=== PATIENT | male | born 1960 | race Two or more races ===

== ENCOUNTER 2019-06-03 18:14 | Emergency (ER) | payer MEDICAID ==
[~2019-06-03] VITALS: Ht 175.3 cm; Wt 105.0 kg
[2019-06-03] MEDS ORDERED: AMIT25TA9 PO (18:26)
[2019-06-03] MEDS ORDERED: HYDR-3831 PO (18:26)
[2019-06-03] MEDS ORDERED: MELO-107 PO (18:26)
[2019-06-03] MEDS ORDERED: GABA-531 PO (18:26)
[2019-06-03] MEDS ORDERED: METF-446 PO (18:30)
[2019-06-03] MEDS ORDERED: LISI-618 PO (18:30)
[2019-06-03 18:38] LABS: GLUCOSE,POINT OF CARE 311 MG/DL (70-110)
[2019-06-03] MEDS ORDERED: MetFORMIN HCL 500 MG TABLET PO ONE (19:45)
[2019-06-03] MEDS ORDERED: KETOROLAC TROMETHAMINE 30 MG/ML VIAL IM ONE (19:45)
[2019-06-03] MEDS ORDERED: PredniSONE 20 MG TABLET PO ONE (19:45)
[2019-06-03 20:15] VITALS: BP 135/75
== END 2019-06-03 21:34 | disposition home or self-care (01) ==
LOC: EMS 18:18
DX: G56.03 Carpal tunnel syndrome, bilateral upper limbs (principal); E11.9 Type 2 diabetes mellitus without complications; F41.9 Anxiety disorder, unspecified; Z79.899 Other long term (current) drug therapy; Z79.84 Long term (current) use of oral hypoglycemic drugs
CPT/HCPCS: 29125; 82962; 96372; 99283; J1885; J7512

== ENCOUNTER 2019-07-30 04:18 | Emergency (ER) | payer MEDICAID ==
[~2019-07-30] VITALS: Ht 170.2 cm; Wt 105.0 kg
[~2019-07-30 04:18] MED LIST: AMIT25TA9 PO; GABA-531 PO; HYDR-3831 PO; LISI-618 PO; MELO-107 PO; METF-446 PO
[2019-07-30 04:42] LABS: GLUCOSE,POINT OF CARE 242 MG/DL (70-110)
[2019-07-30] MEDS ORDERED: PB/HYOSCY/ATR/SCOP/LIDO/MAALOX 55 ML BOTTLE PO ONE (05:15)
[2019-07-30] MEDS ORDERED: KETOROLAC TROMETHAMINE 30 MG/ML VIAL IVP ONE (05:15)
[2019-07-30] MEDS ORDERED: SIMETHICONE 80 MG CHEWABLE TABLET CHEW ONE (05:15)
[2019-07-30] MEDS ORDERED: SODIUM CHLORIDE 0.9% 1,000 ML IV ONE (05:30)
[2019-07-30] MEDS ORDERED: ACETAMINOPHEN 325 MG TABLET PO ONE (05:30)
[2019-07-30 05:42] LABS: APPEARANCE,URINE CLOUDY (CLEAR); BILIRUBIN,URINE NEGATIVE (NEGATIVE); GLUCOSE, URINE (UA) 250 mg/dL (NEGATIVE); KETONES,URINE TRACE mg/dL (NEGATIVE); LEUKOCYTE ESTERASE ,URINE LARGE (NEGATIVE); NITRATE,URINE POSITIVE (NEGATIVE); OCCULT BLOOD,URINE TRACE (NEGATIVE); PROTEIN,URINE TRACE (NEGATIVE)
[2019-07-30 05:45] LABS: BASOPHILS % (AUTO) 0.5 % (0.0-2.0); EOSINOPHILS % (AUTO) 1.4 % (1.0-6.0); HEMATOCRIT 47.4 % (41-53); HEMOGLOBIN 16.3 g/dL (13.5-17.5); LYMPHOCYTES % (AUTO) 6.2 % (22.0-44.0); MEAN CORPUSCULAR HGB CONC 34.3 G/dL (31.0-37.0); MEAN CORPUSCULAR VOLUME 87 fL (80-100); MONOCYTES # (AUTO) 0.9 K/uL (0.1-1.0); MONOCYTES % (AUTO) 5.5 % (2.0-9.0); NEUTROPHILS # (AUTO) 14.4 K/uL (1.8-7.7); PLATELET COUNT (AUTO) 186 K/uL (150-450); RED BLOOD CELL COUNT(AUTO) 5.42 MIL/uL (4.50-5.90); RED CELL DISTRIBUTION WIDTH 13.5 % (11.5-14.5)
[2019-07-30 05:46] LABS: NEUTROPHILS % (AUTO) 86.4 % (40.0-70.0)
[2019-07-30 05:47] LABS: BACTERIA,URINE Few /HPF (None Seen); WBC,URINE 51-100 /HPF (0-5)
[2019-07-30 05:48] LABS: SQUAMOUS EPITHELIAL CELL,UR Rare /LPF (None Seen)
[2019-07-30 05:55] LABS: ANION GAP 11 mmol/L (8-16); CARBON DIOXIDE 23 mmol/L (22-29); CHLORIDE 105 mmol/L (98-107); CREATININE 0.95 mg/dL (0.60-1.30); GLOMERULAR FILTR. RATE CALC > 60 mL/min (>60); GLUCOSE,RANDOM 242 mg/dL (70-110); SODIUM SERUM 139 mmol/L (136-145); UREA NITROGEN, BLOOD 13 mg/dL (7-18)
[2019-07-30 06:00] LABS: ALANINE AMINOTRANSFERASE 32 U/L (12-78); ALBUMIN 3.6 g/dL (3.4-5.0); ALKALINE PHOSPHATASE 117 U/L (46-116); ASPARTATE AMINOTRANSFERASE 17 U/L (15-37); BILIRUBIN,TOTAL 1.1 mg/dL (0.1-1.0); LIPASE 92 U/L (73-393); TOTAL PROTEIN, SERUM 7.6 g/dL (6.4-8.2)
[2019-07-30] MEDS ORDERED: CefTRIAXone 1 GM/DEXTROSE 50 ML IV ONE (06:00)
[2019-07-30 07:52] VITALS: BP 127/78
== END 2019-07-30 08:25 | disposition home or self-care (01) ==
LOC: EMS 04:19
DX: N12 Tubulo-interstitial nephritis, not specified as acute or chronic (principal); R51 Headache; R50.9 Fever, unspecified; E11.9 Type 2 diabetes mellitus without complications; E78.00 Pure hypercholesterolemia, unspecified; F41.9 Anxiety disorder, unspecified; Z79.899 Other long term (current) drug therapy; Z79.84 Long term (current) use of oral hypoglycemic drugs
CPT/HCPCS: 36415; 80053; 81001; 82962; 83690; 85025; 87077; 87086; 96365; 96375; 99284; J0696; J1885; J7030

== ENCOUNTER 2020-03-20 23:25 | Emergency (ER) | payer MEDICAID ==
[~2020-03-20] VITALS: Ht 175.3 cm; Wt 110.9 kg
[~2020-03-20 23:25] MED LIST changes: +GABA-1181 PO; -GABA-531 PO
[2020-03-20] MEDS ORDERED: FLUT12AE7 IH (23:37)
[2020-03-20] MEDS ORDERED: NAPR-1025 PO (23:37)
[2020-03-20] MEDS ORDERED: ERTU1TAB3 PO (23:37)
[2020-03-20] MEDS ORDERED: GLIM2 PO (23:37)
[2020-03-21] MEDS ORDERED: AmLODIPine BESYLATE 5 MG TABLET PO ONE (02:00)
[2020-03-21] MEDS ORDERED: LORazepam 2 MG/ML VIAL IM ONE (02:00)
[2020-03-21 02:19] LABS: GLUCOSE,POINT OF CARE 310 MG/DL (70-110)
[2020-03-21 03:19] LABS: BASOPHILS % (AUTO) 0.3 % (0.0-2.0); EOSINOPHILS % (AUTO) 3.8 % (1.0-6.0); HEMATOCRIT 45.6 % (41-53); HEMOGLOBIN 15.4 g/dL (13.5-17.5); LYMPHOCYTES % (AUTO) 22.4 % (22.0-44.0); MEAN CORPUSCULAR HEMOGLOBIN 29.9 pg (26.0-34.0); MEAN CORPUSCULAR HGB CONC 33.9 G/dL (31.0-37.0); MEAN CORPUSCULAR VOLUME 88 fL (80-100); MONOCYTES # (AUTO) 0.7 K/uL (0.1-1.0); MONOCYTES % (AUTO) 7.6 % (2.0-9.0); NEUTROPHILS # (AUTO) 5.8 K/uL (1.8-7.7); NEUTROPHILS % (AUTO) 65.9 % (40.0-70.0); PLATELET COUNT (AUTO) 189 K/uL (150-450); RED BLOOD CELL COUNT(AUTO) 5.17 MIL/uL (4.50-5.90); RED CELL DISTRIBUTION WIDTH 13.3 % (11.5-14.5)
[2020-03-21 03:22] LABS: ANION GAP 10 mmol/L (8-16); CALCIUM, TOTAL 9.2 mg/dL (8.8-10.5); CARBON DIOXIDE 23 mmol/L (22-29); CHLORIDE 101 mmol/L (98-107); CREATININE 1.01 mg/dL (0.60-1.30); GLOMERULAR FILTR. RATE CALC > 60 mL/min (>60); GLUCOSE,RANDOM 314 mg/dL (70-110); SODIUM SERUM 134 mmol/L (136-145); UREA NITROGEN, BLOOD 18 mg/dL (7-18)
[2020-03-21 03:29] LABS: ALANINE AMINOTRANSFERASE 32 U/L (12-78); ALBUMIN 3.4 g/dL (3.4-5.0); ALKALINE PHOSPHATASE 143 U/L (46-116); ASPARTATE AMINOTRANSFERASE 15 U/L (15-37); BILIRUBIN,TOTAL 0.4 mg/dL (0.1-1.0); TOTAL PROTEIN, SERUM 6.6 g/dL (6.4-8.2)
[2020-03-21 03:30] VITALS: BP 124/77
== END 2020-03-21 04:08 | disposition home or self-care (01) ==
LOC: EMS 23:25
DX: R07.89 Other chest pain (principal); E11.65 Type 2 diabetes mellitus with hyperglycemia; I10 Essential (primary) hypertension; F41.9 Anxiety disorder, unspecified; E78.00 Pure hypercholesterolemia, unspecified; F17.210 Nicotine dependence, cigarettes, uncomplicated; Z79.899 Other long term (current) drug therapy
CPT/HCPCS: 36415; 71045; 80053; 82962; 84484; 85025; 93005; 96372; 99285; J2060

== ENCOUNTER 2020-07-29 03:51 | Emergency (ER) | payer MEDICAID ==
[~2020-07-29] VITALS: Ht 175.3 cm; Wt 111.4 kg
[~2020-07-29 03:51] MED LIST changes: +ERTU1TAB3 PO; +FLUT12AE7 IH; +GLIM2 PO; -LISI-618 PO; +LISI20TA24 PO; +NAPR-1025 PO
[2020-07-29] MEDS ORDERED: HYDROCODONE/ACETAMINOPHEN 5-325 MG TABLET PO ONE (04:45)
[2020-07-29 05:00] VITALS: BP 149/89
== END 2020-07-29 05:44 | disposition home or self-care (01) ==
LOC: EMS 03:54
DX: S83.92XA Sprain of unspecified site of left knee, initial encounter (principal); F41.9 Anxiety disorder, unspecified; E11.9 Type 2 diabetes mellitus without complications; E78.00 Pure hypercholesterolemia, unspecified; I10 Essential (primary) hypertension; F17.210 Nicotine dependence, cigarettes, uncomplicated; Z79.899 Other long term (current) drug therapy; Z79.84 Long term (current) use of oral hypoglycemic drugs; V89.9XXA Person injured in unspecified vehicle accident, initial encounter; Y93.89 Activity, other specified; Y92.89 Other specified places as the place of occurrence of the external cause; Y99.8 Other external cause status
CPT/HCPCS: 99283

== ENCOUNTER → 2020-11-01 | Emergency (ER) | payer MEDICAID ==
[~2020-11-01] VITALS: Ht 175.3 cm; Wt 110.5 kg
[~2020-11-01] MED LIST changes: -AMIT25TA9 PO; +CIPROFLOXACIN 400 MG/D5% WATER 200 ML IV ONE; +CefTRIAXone 1 GM/DEXTROSE 50 ML IV ONE; +KETOROLAC TROMETHAMINE 30 MG/ML VIAL IVP ONE; -MELO-107 PO; -NAPR-1025 PO
[2020-11-01 04:26] LABS: BASOPHILS % (AUTO) 0.2 % (0.0-2.0); EOSINOPHILS % (AUTO) 2.5 % (1.0-6.0); HEMATOCRIT 45.1 % (41-53); HEMOGLOBIN 15.1 g/dL (13.5-17.5); LYMPHOCYTES # (AUTO) 1.6 K/uL (1.0-4.8); LYMPHOCYTES % (AUTO) 15.5 % (22.0-44.0); MEAN CORPUSCULAR HEMOGLOBIN 29.5 pg (26.0-34.0); MEAN CORPUSCULAR HGB CONC 33.5 G/dL (31.0-37.0); MEAN CORPUSCULAR VOLUME 88 fL (80-100); MONOCYTES % (AUTO) 9.4 % (2.0-9.0); NEUTROPHILS # (AUTO) 7.7 K/uL (1.8-7.7); NEUTROPHILS % (AUTO) 72.4 % (40.0-70.0); PLATELET COUNT (AUTO) 195 K/uL (150-450); RED BLOOD CELL COUNT(AUTO) 5.13 MIL/uL (4.50-5.90); RED CELL DISTRIBUTION WIDTH 13.5 % (11.5-14.5)
[2020-11-01 04:29] LABS: APPEARANCE,URINE CLEAR (CLEAR); BILIRUBIN,URINE NEGATIVE (NEGATIVE); GLUCOSE, URINE (UA) 250 mg/dL (NEGATIVE); KETONES,URINE NEGATIVE (NEGATIVE); LEUKOCYTE ESTERASE ,URINE SMALL (NEGATIVE); NITRATE,URINE POSITIVE (NEGATIVE); OCCULT BLOOD,URINE TRACE (NEGATIVE); PROTEIN,URINE NEGATIVE (NEGATIVE); UROBILINOGEN,URINE 0.2 mg/dL (<=1.0)
[2020-11-01 04:37] LABS: ANION GAP 9 mmol/L (8-16); CALCIUM, TOTAL 8.7 mg/dL (8.8-10.5); CARBON DIOXIDE 25 mmol/L (22-29); CHLORIDE 102 mmol/L (98-107); GLOMERULAR FILTR. RATE CALC > 60 mL/min (>60); GLUCOSE,RANDOM 275 mg/dL (70-110); POTASSIUM 4.2 mmol/L (3.5-5.1); SODIUM SERUM 136 mmol/L (136-145); UREA NITROGEN, BLOOD 21 mg/dL (7-18)
[2020-11-01 04:41] LABS: BACTERIA,URINE Many /HPF (None Seen); MUCUS,URINE Few LPF (None Seen); SQUAMOUS EPITHELIAL CELL,UR Rare /LPF (None Seen)
[2020-11-01 04:43] LABS: ALANINE AMINOTRANSFERASE 33 U/L (12-78); ALBUMIN 3.1 g/dL (3.4-5.0); ALKALINE PHOSPHATASE 113 U/L (46-116); ASPARTATE AMINOTRANSFERASE 18 U/L (15-37); BILIRUBIN,TOTAL 0.8 mg/dL (0.1-1.0); LIPASE 162 U/L (73-393)
[2020-11-01 05:00] VITALS: BP 135/79
== END | disposition home or self-care (01) ==
LOC: EMS 03:40
DX: N39.0 Urinary tract infection, site not specified (principal); F41.9 Anxiety disorder, unspecified; E11.9 Type 2 diabetes mellitus without complications; E78.00 Pure hypercholesterolemia, unspecified; I10 Essential (primary) hypertension; F17.210 Nicotine dependence, cigarettes, uncomplicated; Z79.899 Other long term (current) drug therapy
CPT/HCPCS: 36415; 80053; 81001; 82962; 83690; 85025; 87077; 87086; 87186; 96365; 96375; 99284; J0696; J1885

== ENCOUNTER 2020-12-02 21:16 | Emergency (ER) | payer MEDICAID ==
[~2020-12-02] VITALS: Ht 175.3 cm; Wt 106.8 kg
[~2020-12-02 21:16] MED LIST changes: +ACET-2895 PO; -CIPROFLOXACIN 400 MG/D5% WATER 200 ML IV ONE; -CefTRIAXone 1 GM/DEXTROSE 50 ML IV ONE; +ERTA1I IV; -KETOROLAC TROMETHAMINE 30 MG/ML VIAL IVP ONE; +LIDO35.44 TP
[2020-12-02 21:30] VITALS: BP 127/71
== END 2020-12-02 21:50 | disposition home or self-care (01) ==
LOC: EMS 21:21
DX: Z45.2 Encounter for adjustment and management of vascular access device (principal); F41.9 Anxiety disorder, unspecified; E11.9 Type 2 diabetes mellitus without complications; E78.00 Pure hypercholesterolemia, unspecified; I10 Essential (primary) hypertension; F17.210 Nicotine dependence, cigarettes, uncomplicated; Z79.899 Other long term (current) drug therapy; Z79.84 Long term (current) use of oral hypoglycemic drugs
CPT/HCPCS: 99281; Z7502

== ENCOUNTER 2020-12-06 16:54 | Emergency (ER) | payer MEDICAID, OTHER ==
[~2020-12-06] VITALS: Ht 175.3 cm; Wt 106.8 kg
[2020-12-06 19:35] VITALS: BP 138/73
== END 2020-12-06 19:40 | disposition home or self-care (01) ==
LOC: EMS 16:56
DX: T82.838A Hemorrhage due to vascular prosthetic devices, implants and grafts, initial encounter (principal); E11.9 Type 2 diabetes mellitus without complications; E78.00 Pure hypercholesterolemia, unspecified; I10 Essential (primary) hypertension; Z79.84 Long term (current) use of oral hypoglycemic drugs; Z79.899 Other long term (current) drug therapy; Y83.8 Other surgical procedures as the cause of abnormal reaction of the patient, or of later complication, without mention of misadventure at the time of the procedure; Y82.8 Other medical devices associated with adverse incidents
CPT/HCPCS: 99281; Z7502

== ENCOUNTER 2021-01-22 05:14 | Emergency (ER) | payer MEDICAID ==
[~2021-01-22] VITALS: Ht 175.3 cm; Wt 110.7 kg
[~2021-01-22 05:14] MED LIST changes: +BACTDSB PO; -ERTA1I IV; +ERTU15TA PO; -ERTU1TAB3 PO; -GLIM2 PO; -HYDR-3831 PO; -LIDO35.44 TP; -LISI20TA24 PO
[2021-01-22 06:05] LABS: COVID AG,FIA SOURCE NASOPHARYNGEAL
[2021-01-22 06:42] LABS: BASOPHILS % (AUTO) 0.8 % (0.0-2.0); EOSINOPHILS % (AUTO) 6.4 % (1.0-6.0); HEMATOCRIT 44.4 % (41-53); HEMOGLOBIN 14.8 g/dL (13.5-17.5); LYMPHOCYTES # (AUTO) 1.1 K/uL (1.0-4.8); LYMPHOCYTES % (AUTO) 22.5 % (22.0-44.0); MEAN CORPUSCULAR HEMOGLOBIN 29.2 pg (26.0-34.0); MEAN CORPUSCULAR HGB CONC 33.4 G/dL (31.0-37.0); MEAN CORPUSCULAR VOLUME 87 fL (80-100); MONOCYTES # (AUTO) 0.8 K/uL (0.1-1.0); MONOCYTES % (AUTO) 15.3 % (2.0-9.0); NEUTROPHILS # (AUTO) 2.7 K/uL (1.8-7.7); PLATELET COUNT (AUTO) 167 K/uL (150-450); RED BLOOD CELL COUNT(AUTO) 5.08 MIL/uL (4.50-5.90); RED CELL DISTRIBUTION WIDTH 14.1 % (11.5-14.5)
[2021-01-22 06:51] LABS: ANION GAP 9 mmol/L (8-16); CARBON DIOXIDE 25 mmol/L (22-29); CHLORIDE 104 mmol/L (98-107); CREATININE 0.81 mg/dL (0.60-1.30); GLOMERULAR FILTR. RATE CALC > 60 mL/min (>60); GLUCOSE,RANDOM 196 mg/dL (70-110); POTASSIUM 3.7 mmol/L (3.5-5.1); SODIUM SERUM 138 mmol/L (136-145); UREA NITROGEN, BLOOD 11 mg/dL (7-18)
[2021-01-22 06:54] LABS: ALANINE AMINOTRANSFERASE 32 U/L (12-78); ALBUMIN 3.2 g/dL (3.4-5.0); ALKALINE PHOSPHATASE 143 U/L (46-116); ASPARTATE AMINOTRANSFERASE 20 U/L (15-37); BILIRUBIN,TOTAL 0.4 mg/dL (0.1-1.0); TOTAL PROTEIN, SERUM 6.8 g/dL (6.4-8.2)
[2021-01-22 06:55] LABS: APPEARANCE,URINE CLEAR (CLEAR); BILIRUBIN,URINE NEGATIVE (NEGATIVE); GLUCOSE, URINE (UA) 100 mg/dL (NEGATIVE); KETONES,URINE TRACE mg/dL (NEGATIVE); LEUKOCYTE ESTERASE ,URINE NEGATIVE (NEGATIVE); NITRATE,URINE NEGATIVE (NEGATIVE); OCCULT BLOOD,URINE NEGATIVE (NEGATIVE); PROTEIN,URINE NEGATIVE (NEGATIVE)
[2021-01-22 07:00] VITALS: BP 137/92
[2021-01-22 07:07] LABS: BACTERIA,URINE None Seen /HPF (None Seen); RBC,URINE 0-2 /HPF (0-2)
[2021-01-22 07:12] LABS: B-TYPE NATRIURETIC PEPTIDE 16 pg/mL (0-100)
== END 2021-01-22 07:54 | disposition home or self-care (01) ==
LOC: EMS 05:15
DX: J06.9 Acute upper respiratory infection, unspecified (principal); E11.65 Type 2 diabetes mellitus with hyperglycemia; Z20.822 Contact with and (suspected) exposure to COVID-19; E78.00 Pure hypercholesterolemia, unspecified; F41.9 Anxiety disorder, unspecified; Z87.891 Personal history of nicotine dependence
CPT/HCPCS: 71045; 80053; 81001; 82962; 83880; 84484; 85025; 93005; 99285; 36415-L1; 36415-TC

== ENCOUNTER 2021-02-23 20:09 | Emergency (ER) | payer MEDICAID ==
[~2021-02-23] VITALS: Ht 175.3 cm; Wt 108.0 kg
[2021-02-23 21:43] LABS: APPEARANCE,URINE CLEAR (CLEAR); BILIRUBIN,URINE NEGATIVE (NEGATIVE); GLUCOSE, URINE (UA) >=1000 mg/dL (NEGATIVE); KETONES,URINE TRACE mg/dL (NEGATIVE); LEUKOCYTE ESTERASE ,URINE NEGATIVE (NEGATIVE); NITRATE,URINE NEGATIVE (NEGATIVE); OCCULT BLOOD,URINE MODERATE (NEGATIVE); PROTEIN,URINE NEGATIVE (NEGATIVE)
[2021-02-23 21:50] LABS: BACTERIA,URINE Rare /HPF (None Seen); WBC,URINE 0-2 /HPF (0-5)
[2021-02-23] MEDS ORDERED: KETOROLAC TROMETHAMINE 30 MG/ML VIAL IVP ONE (22:00)
[2021-02-23] MEDS ORDERED: SODIUM CHLORIDE 0.9% 1,000 ML IV ONE (22:00)
[2021-02-23] MEDS ORDERED: ONDANSETRON HCL 4 MG/2 ML VIAL IVP ONE (22:00)
[2021-02-23 23:09] LABS: BASOPHILS % (AUTO) 0.2 % (0.0-2.0); EOSINOPHILS % (AUTO) 1.3 % (1.0-6.0); HEMATOCRIT 45.4 % (41-53); HEMOGLOBIN 15.2 g/dL (13.5-17.5); LYMPHOCYTES # (AUTO) 1.3 K/uL (1.0-4.8); LYMPHOCYTES % (AUTO) 11.7 % (22.0-44.0); MEAN CORPUSCULAR HEMOGLOBIN 28.8 pg (26.0-34.0); MEAN CORPUSCULAR HGB CONC 33.4 G/dL (31.0-37.0); MEAN CORPUSCULAR VOLUME 86 fL (80-100); MONOCYTES # (AUTO) 1.1 K/uL (0.1-1.0); MONOCYTES % (AUTO) 9.9 % (2.0-9.0); NEUTROPHILS # (AUTO) 8.8 K/uL (1.8-7.7); NEUTROPHILS % (AUTO) 76.9 % (40.0-70.0); PLATELET COUNT (AUTO) 151 K/uL (150-450); RED BLOOD CELL COUNT(AUTO) 5.27 MIL/uL (4.50-5.90); RED CELL DISTRIBUTION WIDTH 14.3 % (11.5-14.5)
[2021-02-23 23:20] LABS: ANION GAP 10 mmol/L (8-16); CALCIUM, TOTAL 8.7 mg/dL (8.8-10.5); CARBON DIOXIDE 25 mmol/L (22-29); CHLORIDE 103 mmol/L (98-107); CREATININE 0.93 mg/dL (0.60-1.30); GLOMERULAR FILTR. RATE CALC > 60 mL/min (>60); GLUCOSE,RANDOM 213 mg/dL (70-110); POTASSIUM 4.5 mmol/L (3.5-5.1); SODIUM SERUM 138 mmol/L (136-145); UREA NITROGEN, BLOOD 16 mg/dL (7-18)
[2021-02-23 23:26] LABS: ALANINE AMINOTRANSFERASE 29 U/L (12-78); ALKALINE PHOSPHATASE 92 U/L (46-116); ASPARTATE AMINOTRANSFERASE 26 U/L (15-37); BILIRUBIN,TOTAL 0.8 mg/dL (0.1-1.0); LIPASE 109 U/L (73-393); TOTAL PROTEIN, SERUM 7.5 g/dL (6.4-8.2)
[2021-02-24 00:22] LABS: LACTIC ACID 1.8 mmol/L (0.4-2.0)
[2021-02-24 00:28] VITALS: BP 140/86
== END 2021-02-24 00:33 | disposition home or self-care (01) ==
LOC: EMS 20:10
DX: R10.84 Generalized abdominal pain (principal); E11.65 Type 2 diabetes mellitus with hyperglycemia; F41.9 Anxiety disorder, unspecified; E78.00 Pure hypercholesterolemia, unspecified; I10 Essential (primary) hypertension; F17.210 Nicotine dependence, cigarettes, uncomplicated; Z79.84 Long term (current) use of oral hypoglycemic drugs
CPT/HCPCS: 36415; 80053; 81001; 83605; 83690; 84484; 85025; 96361; 96374; 96375; 99284; J1885; J2405; J7030

== ENCOUNTER 2021-07-31 07:49 | Emergency (ER) | payer MEDICAID ==
[~2021-07-31] VITALS: Ht 175.3 cm; Wt 105.9 kg
[~2021-07-31 07:49] MED LIST changes: -ACET-2895 PO; -BACTDSB PO; -ERTU15TA PO; -GABA-1181 PO; +GABA-1201 PO; +GLIM2 PO; +INSU100I26 SQ; +LEVO-72 PO; +LISI20TA24 PO
[2021-07-31] MEDS ORDERED: KETOROLAC TROMETHAMINE 30 MG/ML VIAL IVP ONE (08:15)
[2021-07-31] MEDS ORDERED: ACETAMINOPHEN 500 MG TABLET PO ONE (08:15)
[2021-07-31] MEDS ORDERED: ONDANSETRON HCL 4 MG/2 ML VIAL IVP ONE (08:15)
[2021-07-31] MEDS ORDERED: FAMOTIDINE 10 MG/ML 2 ML VIAL IVP ONE (08:15)
[2021-07-31] MEDS ORDERED: SODIUM CHLORIDE 0.9% 1,000 ML IV ONE (08:15)
[2021-07-31 08:20] LABS: BASOPHILS % (AUTO) 0.5 % (0.0-2.0); EOSINOPHILS % (AUTO) 1.5 % (1.0-6.0); HEMATOCRIT 46.2 % (41-53); HEMOGLOBIN 15.9 g/dL (13.5-17.5); LYMPHOCYTES # (AUTO) 1.3 K/uL (1.0-4.8); MEAN CORPUSCULAR HEMOGLOBIN 29.8 pg (26.0-34.0); MEAN CORPUSCULAR HGB CONC 34.4 G/dL (31.0-37.0); MEAN CORPUSCULAR VOLUME 87 fL (80-100); MONOCYTES % (AUTO) 8.2 % (2.0-9.0); NEUTROPHILS # (AUTO) 10.1 K/uL (1.8-7.7); NEUTROPHILS % (AUTO) 79.8 % (40.0-70.0); PLATELET COUNT (AUTO) 177 K/uL (150-450); RED BLOOD CELL COUNT(AUTO) 5.33 MIL/uL (4.50-5.90); RED CELL DISTRIBUTION WIDTH 13.9 % (11.5-14.5)
[2021-07-31 08:27] LABS: ANION GAP 7 mmol/L (8-16); CALCIUM, TOTAL 8.9 mg/dL (8.8-10.5); CARBON DIOXIDE 26 mmol/L (22-29); CHLORIDE 101 mmol/L (98-107); CREATININE 0.92 mg/dL (0.60-1.30); GLOMERULAR FILTR. RATE CALC > 60 mL/min (>60); GLUCOSE,RANDOM 164 mg/dL (70-110); POTASSIUM 4.3 mmol/L (3.5-5.1); SODIUM SERUM 134 mmol/L (136-145); UREA NITROGEN, BLOOD 15 mg/dL (7-18)
[2021-07-31] MEDS ORDERED: IOHEXOL 350 MG/ML 150 ML VIAL ONE (08:31)
[2021-07-31] MEDS ORDERED: SODIUM CHLORIDE 0.9% 100 ML ONE (08:31)
[2021-07-31 08:33] LABS: ALANINE AMINOTRANSFERASE 31 U/L (12-78); ALBUMIN 3.7 g/dL (3.4-5.0); ALKALINE PHOSPHATASE 97 U/L (46-116); ASPARTATE AMINOTRANSFERASE 19 U/L (15-37); BILIRUBIN,TOTAL 1.2 mg/dL (0.1-1.0); LIPASE 103 U/L (73-393); TOTAL PROTEIN, SERUM 7.7 g/dL (6.4-8.2)
[2021-07-31 09:05] LABS: APPEARANCE,URINE HAZY (CLEAR); BILIRUBIN,URINE NEGATIVE (NEGATIVE); GLUCOSE, URINE (UA) NEGATIVE (NEGATIVE); KETONES,URINE NEGATIVE (NEGATIVE); LEUKOCYTE ESTERASE ,URINE LARGE (NEGATIVE); NITRATE,URINE NEGATIVE (NEGATIVE); OCCULT BLOOD,URINE TRACE (NEGATIVE); PH,URINE 7.5 (5.0-8.0); PROTEIN,URINE 30-70 mg/dL (NEGATIVE); SPECIFIC GRAVITIY, URINE 1.024 (1.003-1.030)
[2021-07-31 09:18] LABS: BACTERIA,URINE Many /HPF (None Seen); WBC,URINE >100 /HPF (0-5)
[2021-07-31] MEDS ORDERED: CefTRIAXone 1 GM/DEXTROSE 50 ML IV ONE (09:30)
[2021-07-31 09:57] VITALS: BP 132/86
[2021-07-31] MEDS ORDERED: CEPH500C3 PO (10:08)
== END 2021-07-31 10:31 | disposition home or self-care (01) ==
LOC: EMS 07:53
DX: N12 Tubulo-interstitial nephritis, not specified as acute or chronic (principal); I10 Essential (primary) hypertension; E11.9 Type 2 diabetes mellitus without complications; E78.00 Pure hypercholesterolemia, unspecified; F41.9 Anxiety disorder, unspecified; Z79.899 Other long term (current) drug therapy
CPT/HCPCS: 36415; 74177; 80053; 81001; 82962; 83690; 85025; 87086; 96365; 96375; 99285; J0696; J1885; J2405; J3490; J7030; J7050; Q9967

== ENCOUNTER 2021-11-04 01:03 | Emergency (ER) | payer MEDICAID ==
[~2021-11-04] VITALS: Ht 175.3 cm; Wt 100.0 kg
[~2021-11-04 01:03] MED LIST changes: +CEPH-558 PO
[2021-11-04 01:15] VITALS: BP 128/80
[2021-11-04 02:51] LABS: BASOPHILS % (AUTO) 0.3 % (0.0-2.0); EOSINOPHILS % (AUTO) 2.1 % (1.0-6.0); HEMATOCRIT 43.8 % (41-53); HEMOGLOBIN 14.9 g/dL (13.5-17.5); LYMPHOCYTES # (AUTO) 1.6 K/uL (1.0-4.8); LYMPHOCYTES % (AUTO) 17.5 % (22.0-44.0); MEAN CORPUSCULAR HEMOGLOBIN 29.4 pg (26.0-34.0); MEAN CORPUSCULAR HGB CONC 34.1 G/dL (31.0-37.0); MEAN CORPUSCULAR VOLUME 86 fL (80-100); MONOCYTES # (AUTO) 0.7 K/uL (0.1-1.0); MONOCYTES % (AUTO) 7.9 % (2.0-9.0); NEUTROPHILS # (AUTO) 6.5 K/uL (1.8-7.7); NEUTROPHILS % (AUTO) 72.2 % (40.0-70.0); PLATELET COUNT (AUTO) 187 K/uL (150-450); RED BLOOD CELL COUNT(AUTO) 5.08 MIL/uL (4.50-5.90); RED CELL DISTRIBUTION WIDTH 13.6 % (11.5-14.5)
[2021-11-04 02:58] LABS: ANION GAP 9 mmol/L (8-16); CALCIUM, TOTAL 8.8 mg/dL (8.8-10.5); CARBON DIOXIDE 25 mmol/L (22-29); CHLORIDE 103 mmol/L (98-107); CREATININE 1.05 mg/dL (0.60-1.30); GLOMERULAR FILTR. RATE CALC > 60 mL/min (>60); GLUCOSE,RANDOM 373 mg/dL (70-110); POTASSIUM 4.2 mmol/L (3.5-5.1); SODIUM SERUM 137 mmol/L (136-145); UREA NITROGEN, BLOOD 13 mg/dL (7-18)
[2021-11-04 03:03] LABS: INR 1.1 (0.9-1.1); PROTHROMBIN TIME 11.4 SEC (9.4-11.6)
[2021-11-04 03:04] LABS: ALANINE AMINOTRANSFERASE 27 U/L (12-78); ALBUMIN 3.1 g/dL (3.4-5.0); ALKALINE PHOSPHATASE 120 U/L (46-116); ASPARTATE AMINOTRANSFERASE 13 U/L (15-37); BILIRUBIN,TOTAL 0.3 mg/dL (0.1-1.0); LIPASE 86 U/L (73-393); TOTAL PROTEIN, SERUM 6.6 g/dL (6.4-8.2)
[2021-11-04 03:09] LABS: APPEARANCE,URINE CLEAR (CLEAR); BILIRUBIN,URINE NEGATIVE (NEGATIVE); GLUCOSE, URINE (UA) >=1000 mg/dL (NEGATIVE); LEUKOCYTE ESTERASE ,URINE MODERATE (NEGATIVE); NITRATE,URINE NEGATIVE (NEGATIVE); OCCULT BLOOD,URINE NEGATIVE (NEGATIVE); PROTEIN,URINE NEGATIVE (NEGATIVE); SPECIFIC GRAVITIY, URINE 1.026 (1.003-1.030); UROBILINOGEN,URINE <=1.0 mg/dL (<=1.0)
[2021-11-04 03:23] LABS: BACTERIA,URINE None Seen /HPF (None Seen); RBC,URINE 0-2 /HPF (0-2)
[2021-11-04] MEDS ORDERED: CEPH-558 PO (03:47)
== END 2021-11-04 04:32 | disposition left against medical advice (07) ==
LOC: EMS 01:03
DX: N39.0 Urinary tract infection, site not specified (principal); R33.9 Retention of urine, unspecified; F41.9 Anxiety disorder, unspecified; E11.9 Type 2 diabetes mellitus without complications; E78.00 Pure hypercholesterolemia, unspecified; I10 Essential (primary) hypertension; Z87.440 Personal history of urinary (tract) infections
CPT/HCPCS: 80053; 81001; 82962; 83690; 84484; 85025; 85610; 85730; 87086; 93005; 99284

== ENCOUNTER 2022-01-23 19:16 | Emergency (ER) | payer MEDICAID ==
[~2022-01-23] VITALS: Ht 175.3 cm; Wt 103.2 kg
[2022-01-23] MEDS ORDERED: KETOROLAC TROMETHAMINE 30 MG/ML VIAL IM ONE (20:15)
[2022-01-23 21:30] VITALS: BP 131/76
[2022-01-23] MEDS ORDERED: IBUP-2070 PO (22:09)
[2022-01-23] MEDS ORDERED: ACET-66 PO (22:09)
== END 2022-01-24 00:12 | disposition home or self-care (01) ==
LOC: EMS 19:16
DX: S86.912A Strain of unspecified muscle(s) and tendon(s) at lower leg level, left leg, initial encounter (principal); E11.9 Type 2 diabetes mellitus without complications; E78.00 Pure hypercholesterolemia, unspecified; F41.9 Anxiety disorder, unspecified; I10 Essential (primary) hypertension; X58.XXXA Exposure to other specified factors, initial encounter; Y93.01 Activity, walking, marching and hiking; Y92.89 Other specified places as the place of occurrence of the external cause; Y99.8 Other external cause status; Z87.440 Personal history of urinary (tract) infections
CPT/HCPCS: 99283; 82962; 73562; 96372; J1885

== ENCOUNTER 2022-01-26 20:39 | Emergency (ER) | payer MEDICAID ==
[~2022-01-26] VITALS: Ht 175.3 cm; Wt 103.2 kg
[~2022-01-26 20:39] MED LIST changes: +ACET-66 PO; +IBUP-2070 PO
[2022-01-26 20:44] VITALS: BP 154/84
== END 2022-01-26 22:59 | disposition left against medical advice (07) ==
LOC: EMS 20:39
DX: R53.1 Weakness (principal); Z53.21 Procedure and treatment not carried out due to patient leaving prior to being seen by health care provider

== ENCOUNTER 2022-05-26 06:16 | Inpatient (IN) | payer MEDICAID, OTHER ==
[~2022-05-26] VITALS: Ht 175.3 cm; Wt 101.3 kg
[~2022-05-26 06:16] MED LIST changes: +IBUP-1492 PO; -IBUP-2070 PO
[2022-05-26 07:04] LABS: BASOPHILS % (AUTO) 0.2 % (0.0-2.0); EOSINOPHILS % (AUTO) 0.2 % (1.0-6.0); HEMATOCRIT 45.2 % (41-53); HEMOGLOBIN 15.1 g/dL (13.5-17.5); LYMPHOCYTES # (AUTO) 0.9 K/uL (1.0-4.8); LYMPHOCYTES % (AUTO) 6.4 % (22.0-44.0); MEAN CORPUSCULAR HEMOGLOBIN 28.8 pg (26.0-34.0); MEAN CORPUSCULAR HGB CONC 33.3 G/dL (31.0-37.0); MEAN CORPUSCULAR VOLUME 86 fL (80-100); MONOCYTES % (AUTO) 6.9 % (2.0-9.0); NEUTROPHILS # (AUTO) 12.5 K/uL (1.8-7.7); PLATELET COUNT (AUTO) 177 K/uL (150-450); RED BLOOD CELL COUNT(AUTO) 5.24 MIL/uL (4.50-5.90); RED CELL DISTRIBUTION WIDTH 13.4 % (11.5-14.5)
[2022-05-26 07:15] LABS: ANION GAP 9 mmol/L (8-16); CALCIUM, TOTAL 8.7 mg/dL (8.8-10.5); CARBON DIOXIDE 25 mmol/L (22-29); CHLORIDE 100 mmol/L (98-107); CREATININE 0.91 mg/dL (0.60-1.30); GLUCOSE,RANDOM 189 mg/dL (70-110); POTASSIUM 3.5 mmol/L (3.5-5.1); SODIUM SERUM 134 mmol/L (136-145); UREA NITROGEN, BLOOD 11 mg/dL (7-18)
[2022-05-26 07:16] LABS: GLOMERULAR FILTR. RATE CALC > 60 mL/min (>60); NEUTROPHILS % (AUTO) 86.3 % (40.0-70.0)
[2022-05-26 07:19] LABS: ALANINE AMINOTRANSFERASE 20 U/L (12-78); ALBUMIN 3.3 g/dL (3.4-5.0); ALKALINE PHOSPHATASE 98 U/L (46-116); ASPARTATE AMINOTRANSFERASE 12 U/L (15-37); TOTAL PROTEIN, SERUM 7.3 g/dL (6.4-8.2)
[2022-05-26 07:25] LABS: INR 1.3 (0.9-1.1); PROTHROMBIN TIME 13.8 SEC (9.4-11.6)
[2022-05-26 07:28] LABS: COVID AG,FIA SOURCE NASAL SWAB
[2022-05-26 07:40] LABS: B-TYPE NATRIURETIC PEPTIDE 49 pg/mL (0-100)
[2022-05-26 08:03] LABS: INFLUENZA TYPE A NEGATIVE FOR TYPE A (NEGATIVE); INFLUENZA TYPE B NEGATIVE FOR TYPE B (NEGATIVE)
[2022-05-26] MEDS ORDERED: ACETAMINOPHEN 500 MG TABLET PO ONE (09:45)
[2022-05-26] MEDS ORDERED: KETOROLAC TROMETHAMINE 30 MG/ML VIAL IVP ONE (09:45)
[2022-05-26] MEDS: SODIUM CHLORIDE 0.9% 1,000 ML IV ONE ×2 (09:52→10:06)
[2022-05-26 10:51] LABS: GLUCOSE,POINT OF CARE 163 MG/DL (70-110)
[2022-05-26 11:27] LABS: APPEARANCE,URINE CLEAR (CLEAR); BILIRUBIN,URINE NEGATIVE (NEGATIVE); GLUCOSE, URINE (UA) NEGATIVE (NEGATIVE); KETONES,URINE TRACE mg/dL (NEGATIVE); LEUKOCYTE ESTERASE ,URINE SMALL (NEGATIVE); NITRATE,URINE NEGATIVE (NEGATIVE); OCCULT BLOOD,URINE MODERATE (NEGATIVE); PH,URINE 6.5 (5.0-8.0); PROTEIN,URINE 30-70 mg/dL (NEGATIVE); SPECIFIC GRAVITIY, URINE 1.024 (1.003-1.030)
[2022-05-26 11:39] LABS: BACTERIA,URINE Moderate /HPF (None Seen)
[2022-05-26] MEDS ORDERED: ALBUTEROL SULFATE 2.5 MG/0.5 ML NEB SOLUTION NEB PRN (14:45)
[2022-05-26] MEDS ORDERED: IPRATROPIUM BROMIDE 0.5 MG/2.5 ML NEB SOLUTION NEB PRN (14:45)
[2022-05-26] MEDS ORDERED: CefTRIAXone 1 GM/DEXTROSE 50 ML IV SCH (14:45)
[2022-05-26] MEDS ORDERED: DEXTROSE 50%-WATER 25 GM/50 ML SYRINGE IVP PRN (14:45)
[2022-05-26] MEDS ORDERED: BISACODYL 10 MG RECTAL RECTAL SUPPOSITORY PR PRN (14:45)
[2022-05-26] MEDS ORDERED: MORPHINE SULFATE 2 MG/ML SYRINGE IVP PRN (14:45)
[2022-05-26] MEDS ORDERED: ZOLPIDEM TARTRATE 5 MG TABLET PO PRN (14:45)
[2022-05-26] MEDS ORDERED: FUROSEMIDE 40 MG/4 ML VIAL IVP ONE (14:45)
[2022-05-26] MEDS ORDERED: INSULIN GLARGINE,HUM.REC.ANLOG 100 UNITS/ML SQ ONE (14:45)
[2022-05-26] MEDS ORDERED: MAGNESIUM HYDROXIDE SUSPENSION 30 ML UDCUP PO PRN (14:45)
[2022-05-26] MEDS ORDERED: TAMS-13 PO (14:47)
[2022-05-26] MEDS ORDERED: FLUT16H NASAL (14:47)
[2022-05-26] MEDS ORDERED: SEMA14TA2 PO (14:47)
[2022-05-26] MEDS: HEPARIN SODIUM,PORCINE 5,000 UNITS/ML VIAL SQ SCH ×2 (16:09→23:03)
[2022-05-26] MEDS: GLIMEPIRIDE 2 MG TABLET PO SCH (17:09)
[2022-05-26] MEDS: INSULIN LISPRO 100 UNITS/ML SQ PRN ×2 (17:19→21:11)
[2022-05-26 17:31] LABS: GLUCOSE,POINT OF CARE 152 MG/DL (70-110)
[2022-05-26 20:00] VITALS: BP 128/84
[2022-05-26] MEDS ORDERED: FLUTICASONE IH SCH (21:00)
[2022-05-26] MEDS ORDERED: SALMETEROL IH SCH (21:00)
[2022-05-26] MEDS ORDERED: [UNRECOGNIZED DRUG - OTHER] IH SCH (21:00)
[2022-05-26] MEDS: ONDANSETRON HCL 4 MG/2 ML VIAL IVP PRN (21:04)
[2022-05-26] MEDS: GABAPENTIN 400 MG CAPSULE PO SCH (21:46)
[2022-05-26] MEDS: ACETAMINOPHEN 325 MG TABLET PO PRN (23:10)
[2022-05-27] VITALS: BP 152/91
[2022-05-27 04:00] VITALS: BP 152/96
[2022-05-27 06:56] LABS: GLUCOMETER DEV NAME(LOC) 5S.2B; GLUCOSE,POINT OF CARE 156 MG/DL (70-110)
[2022-05-27 07:16] VITALS: BP 130/85
[2022-05-27] MEDS: GABAPENTIN 400 MG CAPSULE PO SCH ×2 (08:06→20:09)
[2022-05-27] MEDS: ACETAMINOPHEN 325 MG TABLET PO PRN ×2 (08:06→20:10)
[2022-05-27] MEDS: PANTOPRAZOLE SODIUM 40 MG DR TABLET PO SCH (08:06)
[2022-05-27] MEDS: HEPARIN SODIUM,PORCINE 5,000 UNITS/ML VIAL SQ SCH ×2 (08:07→15:52)
[2022-05-27] MEDS: LISINOPRIL 20 MG TABLET PO SCH (08:07)
[2022-05-27] MEDS: GLIMEPIRIDE 2 MG TABLET PO SCH ×2 (08:07→17:53)
[2022-05-27] MEDS: ONDANSETRON HCL 4 MG/2 ML VIAL IVP PRN (08:13)
[2022-05-27 11:09] VITALS: BP 113/73
[2022-05-27] MEDS: INSULIN LISPRO 100 UNITS/ML SQ PRN ×2 (11:55→17:52)
[2022-05-27 14:36] LABS: GLUCOMETER DEV NAME(LOC) 5N.1C; GLUCOSE,POINT OF CARE 232 MG/DL (70-110)
[2022-05-27] MEDS ORDERED: SODIUM CHLORIDE 0.9% 250 ML IV ONE (15:13)
[2022-05-27] MEDS ORDERED: SODIUM CHLORIDE 0.9% 100 ML ONE (15:17)
[2022-05-27] MEDS ORDERED: IOHEXOL 350 MG/ML 100 ML VIAL ONE (15:17)
[2022-05-27 15:37] LABS: BASOPHILS % (AUTO) 0.1 % (0.0-2.0); EOSINOPHILS % (AUTO) 0.4 % (1.0-6.0); HEMATOCRIT 45.3 % (41-53); HEMOGLOBIN 14.9 g/dL (13.5-17.5); LYMPHOCYTES # (AUTO) 0.8 K/uL (1.0-4.8); LYMPHOCYTES % (AUTO) 7.4 % (22.0-44.0); MEAN CORPUSCULAR HEMOGLOBIN 28.6 pg (26.0-34.0); MEAN CORPUSCULAR HGB CONC 32.9 G/dL (31.0-37.0); MEAN CORPUSCULAR VOLUME 87 fL (80-100); MONOCYTES # (AUTO) 0.9 K/uL (0.1-1.0); MONOCYTES % (AUTO) 8.4 % (2.0-9.0); NEUTROPHILS # (AUTO) 9.4 K/uL (1.8-7.7); NEUTROPHILS % (AUTO) 83.7 % (40.0-70.0); PLATELET COUNT (AUTO) 166 K/uL (150-450); RED CELL DISTRIBUTION WIDTH 13.9 % (11.5-14.5)
[2022-05-27 15:43] LABS: ANION GAP 8 mmol/L (8-16); CARBON DIOXIDE 27 mmol/L (22-29); CHLORIDE 100 mmol/L (98-107); CREATININE 0.87 mg/dL (0.60-1.30); GLUCOSE,RANDOM 163 mg/dL (70-110); POTASSIUM 3.7 mmol/L (3.5-5.1); SODIUM SERUM 135 mmol/L (136-145); UREA NITROGEN, BLOOD 18 mg/dL (7-18)
[2022-05-27 15:48] LABS: ALANINE AMINOTRANSFERASE 16 U/L (12-78); ALBUMIN 2.9 g/dL (3.4-5.0); ALKALINE PHOSPHATASE 85 U/L (46-116); ASPARTATE AMINOTRANSFERASE 15 U/L (15-37); BILIRUBIN,TOTAL 0.8 mg/dL (0.1-1.0); TOTAL PROTEIN, SERUM 7.2 g/dL (6.4-8.2)
[2022-05-27] MEDS: DEXTROSE 5%-0.45% SODIUM CHL 1,000 ML IV SCH (15:48)
[2022-05-27 15:49] VITALS: BP 125/78
[2022-05-27] MEDS: CefTRIAXone 1 GM/DEXTROSE 50 ML IV SCH (15:51)
[2022-05-27 15:56] LABS: GLOMERULAR FILTR. RATE CALC > 60 mL/min (>60)
[2022-05-27 17:52] LABS: GLUCOMETER DEV NAME(LOC) 5N.1C; GLUCOSE,POINT OF CARE 172 MG/DL (70-110)
[2022-05-27 20:08] VITALS: BP 124/89
[2022-05-27] MEDS: HYDROCODONE/ACETAMINOPHEN 5-325 MG TABLET PO PRN (20:10)
[2022-05-27 21:41] LABS: GLUCOMETER DEV NAME(LOC) 5S.1B; GLUCOSE,POINT OF CARE 138 MG/DL (70-110)
[2022-05-28 00:09] VITALS: BP 125/84
[2022-05-28] MEDS: HEPARIN SODIUM,PORCINE 5,000 UNITS/ML VIAL SQ SCH ×3 (00:30→15:12)
[2022-05-28 04:59] VITALS: BP 111/72
[2022-05-28] MEDS: INSULIN LISPRO 100 UNITS/ML SQ PRN ×2 (06:07→11:55)
[2022-05-28 06:26] LABS: GLUCOMETER DEV NAME(LOC) 5S.2B; GLUCOSE,POINT OF CARE 153 MG/DL (70-110)
[2022-05-28 07:31] VITALS: BP 115/75
[2022-05-28] MEDS: DEXTROSE 5%-0.45% SODIUM CHL 1,000 ML IV SCH ×2 (07:34→18:28)
[2022-05-28] MEDS: LISINOPRIL 20 MG TABLET PO SCH (08:14)
[2022-05-28] MEDS: GABAPENTIN 400 MG CAPSULE PO SCH ×2 (08:15→20:20)
[2022-05-28] MEDS: GLIMEPIRIDE 2 MG TABLET PO SCH ×2 (08:15→18:24)
[2022-05-28] MEDS: PANTOPRAZOLE SODIUM 40 MG DR TABLET PO SCH (08:15)
[2022-05-28 11:17] VITALS: BP 118/70
[2022-05-28] MEDS: CefTRIAXone 1 GM/DEXTROSE 50 ML IV SCH (14:06)
[2022-05-28 15:25] VITALS: BP 117/77
[2022-05-28] MEDS ORDERED: *CLINICAL-MEROPENEM DOSING CLINICAL ONE (17:15)
[2022-05-28] MEDS: MEROPENEM 1 GM in SODIUM CHLORIDE 0.9% 100 ML IV SCH (18:38)
[2022-05-28 20:12] VITALS: BP 128/78
[2022-05-28] MEDS: ACETAMINOPHEN 325 MG TABLET PO PRN (22:16)
[2022-05-28 22:36] LABS: GLUCOMETER DEV NAME(LOC) 5S.1B; GLUCOSE,POINT OF CARE 121 MG/DL (70-110)
[2022-05-29 00:22] VITALS: BP 130/79
[2022-05-29] MEDS: HEPARIN SODIUM,PORCINE 5,000 UNITS/ML VIAL SQ SCH ×3 (00:53→15:49)
[2022-05-29] MEDS: MEROPENEM 1 GM in SODIUM CHLORIDE 0.9% 100 ML IV SCH ×3 (01:59→17:37)
[2022-05-29 05:19] VITALS: BP 113/68
[2022-05-29] MEDS: HYDROCODONE/ACETAMINOPHEN 5-325 MG TABLET PO PRN (05:35)
[2022-05-29 06:09] LABS: BASOPHILS % (AUTO) 0.3 % (0.0-2.0); HEMATOCRIT 43.1 % (41-53); HEMOGLOBIN 14.9 g/dL (13.5-17.5); MEAN CORPUSCULAR HEMOGLOBIN 29.7 pg (26.0-34.0); MEAN CORPUSCULAR HGB CONC 34.5 G/dL (31.0-37.0); MEAN CORPUSCULAR VOLUME 86 fL (80-100); MONOCYTES # (AUTO) 0.8 K/uL (0.1-1.0); MONOCYTES % (AUTO) 9.3 % (2.0-9.0); NEUTROPHILS # (AUTO) 6.5 K/uL (1.8-7.7); NEUTROPHILS % (AUTO) 77.4 % (40.0-70.0); PLATELET COUNT (AUTO) 170 K/uL (150-450); RED BLOOD CELL COUNT(AUTO) 5.01 MIL/uL (4.50-5.90); RED CELL DISTRIBUTION WIDTH 13.5 % (11.5-14.5)
[2022-05-29 06:39] LABS: ALANINE AMINOTRANSFERASE 26 U/L (12-78); ALBUMIN 2.7 g/dL (3.4-5.0); ALKALINE PHOSPHATASE 79 U/L (46-116); ANION GAP 5 mmol/L (8-16); ASPARTATE AMINOTRANSFERASE 21 U/L (15-37); BILIRUBIN,TOTAL 0.6 mg/dL (0.1-1.0); CALCIUM, TOTAL 8.2 mg/dL (8.8-10.5); CARBON DIOXIDE 25 mmol/L (22-29); CHLORIDE 98 mmol/L (98-107); CREATININE 0.81 mg/dL (0.60-1.30); GLUCOSE,RANDOM 101 mg/dL (70-110); POTASSIUM 3.6 mmol/L (3.5-5.1); SODIUM SERUM 128 mmol/L (136-145); TOTAL PROTEIN, SERUM 6.9 g/dL (6.4-8.2); UREA NITROGEN, BLOOD 13 mg/dL (7-18)
[2022-05-29 06:40] LABS: GLOMERULAR FILTR. RATE CALC > 60 mL/min (>60)
[2022-05-29] MEDS: DEXTROSE 5%-0.45% SODIUM CHL 1,000 ML IV SCH (06:45)
[2022-05-29 06:51] LABS: GLUCOMETER DEV NAME(LOC) 5S.2B; GLUCOSE,POINT OF CARE 113 MG/DL (70-110)
[2022-05-29 08:08] VITALS: BP 112/74
[2022-05-29] MEDS: GABAPENTIN 400 MG CAPSULE PO SCH ×2 (08:23→20:45)
[2022-05-29] MEDS: LISINOPRIL 20 MG TABLET PO SCH (08:23)
[2022-05-29] MEDS: PANTOPRAZOLE SODIUM 40 MG DR TABLET PO SCH (08:24)
[2022-05-29] MEDS: GLIMEPIRIDE 2 MG TABLET PO SCH ×2 (08:24→17:31)
[2022-05-29 10:56] VITALS: BP 123/70
[2022-05-29 15:26] LABS: GLUCOMETER DEV NAME(LOC) 5S.2B; GLUCOSE,POINT OF CARE 130 MG/DL (70-110)
[2022-05-29] MEDS: ACETAMINOPHEN 325 MG TABLET PO PRN (15:49)
[2022-05-29 16:20] VITALS: BP 128/80
[2022-05-29 20:00] VITALS: BP 122/78
[2022-05-29] MEDS: INSULIN LISPRO 100 UNITS/ML SQ PRN (20:56)
[2022-05-30] VITALS (7 sets, daily range): BP systolic 102–135; BP diastolic 73–88
[2022-05-30] MEDS: HEPARIN SODIUM,PORCINE 5,000 UNITS/ML VIAL SQ SCH ×3 (00:32→16:28)
[2022-05-30] MEDS: ACETAMINOPHEN 325 MG TABLET PO PRN (00:32)
[2022-05-30] MEDS ORDERED: SODIUM CHLORIDE 0.9% 250 ML IV ONE (00:53)
[2022-05-30] MEDS: MEROPENEM 1 GM in SODIUM CHLORIDE 0.9% 100 ML IV SCH ×3 (01:04→17:18)
[2022-05-30 06:26] LABS: GLUCOMETER DEV NAME(LOC) 5S.2B; GLUCOSE,POINT OF CARE 148 MG/DL (70-110)
[2022-05-30 06:56] LABS: GLUCOMETER DEV NAME(LOC) 5N.1C; GLUCOSE,POINT OF CARE 101 MG/DL (70-110)
[2022-05-30 07:42] LABS: BASOPHILS % (AUTO) 0.3 % (0.0-2.0); EOSINOPHILS % (AUTO) 1.1 % (1.0-6.0); HEMATOCRIT 44.5 % (41-53); LYMPHOCYTES % (AUTO) 12.7 % (22.0-44.0); MEAN CORPUSCULAR HEMOGLOBIN 28.9 pg (26.0-34.0); MEAN CORPUSCULAR HGB CONC 33.7 G/dL (31.0-37.0); MEAN CORPUSCULAR VOLUME 86 fL (80-100); MONOCYTES % (AUTO) 12.3 % (2.0-9.0); NEUTROPHILS # (AUTO) 5.8 K/uL (1.8-7.7); NEUTROPHILS % (AUTO) 73.6 % (40.0-70.0); PLATELET COUNT (AUTO) 176 K/uL (150-450); RED BLOOD CELL COUNT(AUTO) 5.18 MIL/uL (4.50-5.90); RED CELL DISTRIBUTION WIDTH 13.7 % (11.5-14.5)
[2022-05-30 07:57] LABS: ALANINE AMINOTRANSFERASE 42 U/L (12-78); ALBUMIN 2.7 g/dL (3.4-5.0); ALKALINE PHOSPHATASE 81 U/L (46-116); ANION GAP 6 mmol/L (8-16); ASPARTATE AMINOTRANSFERASE 35 U/L (15-37); BILIRUBIN,TOTAL 0.5 mg/dL (0.1-1.0); CALCIUM, TOTAL 8.6 mg/dL (8.8-10.5); CARBON DIOXIDE 27 mmol/L (22-29); CHLORIDE 101 mmol/L (98-107); CREATININE 0.73 mg/dL (0.60-1.30); GLUCOSE,RANDOM 110 mg/dL (70-110); POTASSIUM 3.9 mmol/L (3.5-5.1); SODIUM SERUM 134 mmol/L (136-145); TOTAL PROTEIN, SERUM 7.2 g/dL (6.4-8.2); UREA NITROGEN, BLOOD 11 mg/dL (7-18)
[2022-05-30 07:58] LABS: GLOMERULAR FILTR. RATE CALC > 60 mL/min (>60)
[2022-05-30] MEDS: PANTOPRAZOLE SODIUM 40 MG DR TABLET PO SCH (08:48)
[2022-05-30] MEDS: GLIMEPIRIDE 2 MG TABLET PO SCH ×2 (08:48→17:17)
[2022-05-30] MEDS: GABAPENTIN 400 MG CAPSULE PO SCH ×2 (08:48→21:27)
[2022-05-30] MEDS: LISINOPRIL 20 MG TABLET PO SCH (08:48)
[2022-05-30] MEDS: INSULIN LISPRO 100 UNITS/ML SQ PRN ×2 (12:21→22:36)
[2022-05-30 21:11] LABS: GLUCOMETER DEV NAME(LOC) 5S.2B; GLUCOSE,POINT OF CARE 154 MG/DL (70-110)
[2022-05-30 22:51] LABS: GLUCOMETER DEV NAME(LOC) 5N.1C; GLUCOSE,POINT OF CARE 184 MG/DL (70-110)
[2022-05-30 22:51] LABS: GLUCOMETER DEV NAME(LOC) 5N.1C; GLUCOSE,POINT OF CARE 122 MG/DL (70-110)
[2022-05-31] VITALS: BP 120/79
[2022-05-31] MEDS: HEPARIN SODIUM,PORCINE 5,000 UNITS/ML VIAL SQ SCH ×4 (00:44→23:38)
[2022-05-31] MEDS: MEROPENEM 1 GM in SODIUM CHLORIDE 0.9% 100 ML IV SCH ×3 (03:01→17:37)
[2022-05-31 04:00] VITALS: BP 106/72
[2022-05-31] MEDS: INSULIN LISPRO 100 UNITS/ML SQ PRN ×2 (06:23→17:43)
[2022-05-31 06:54] LABS: BASOPHILS % (AUTO) 0.3 % (0.0-2.0); HEMATOCRIT 42.7 % (41-53); HEMOGLOBIN 14.4 g/dL (13.5-17.5); LYMPHOCYTES # (AUTO) 1.3 K/uL (1.0-4.8); MEAN CORPUSCULAR HEMOGLOBIN 28.9 pg (26.0-34.0); MEAN CORPUSCULAR HGB CONC 33.6 G/dL (31.0-37.0); MEAN CORPUSCULAR VOLUME 86 fL (80-100); MONOCYTES % (AUTO) 13.8 % (2.0-9.0); NEUTROPHILS # (AUTO) 4.5 K/uL (1.8-7.7); NEUTROPHILS % (AUTO) 64.9 % (40.0-70.0); PLATELET COUNT (AUTO) 194 K/uL (150-450); RED BLOOD CELL COUNT(AUTO) 4.98 MIL/uL (4.50-5.90); RED CELL DISTRIBUTION WIDTH 13.7 % (11.5-14.5)
[2022-05-31 07:02] LABS: ALANINE AMINOTRANSFERASE 48 U/L (12-78); ALBUMIN 2.6 g/dL (3.4-5.0); ALKALINE PHOSPHATASE 77 U/L (46-116); ANION GAP 5 mmol/L (8-16); ASPARTATE AMINOTRANSFERASE 32 U/L (15-37); BILIRUBIN,TOTAL 0.4 mg/dL (0.1-1.0); CALCIUM, TOTAL 8.5 mg/dL (8.8-10.5); CARBON DIOXIDE 27 mmol/L (22-29); CHLORIDE 102 mmol/L (98-107); CREATININE 0.77 mg/dL (0.60-1.30); GLUCOSE,RANDOM 162 mg/dL (70-110); SODIUM SERUM 134 mmol/L (136-145); TOTAL PROTEIN, SERUM 6.9 g/dL (6.4-8.2); UREA NITROGEN, BLOOD 13 mg/dL (7-18)
[2022-05-31 07:04] LABS: GLOMERULAR FILTR. RATE CALC > 60 mL/min (>60)
[2022-05-31 07:34] VITALS: BP 104/70
[2022-05-31] MEDS: PANTOPRAZOLE SODIUM 40 MG DR TABLET PO SCH (08:06)
[2022-05-31] MEDS: LISINOPRIL 20 MG TABLET PO SCH (08:06)
[2022-05-31] MEDS: GABAPENTIN 400 MG CAPSULE PO SCH ×2 (08:06→20:08)
[2022-05-31] MEDS: GLIMEPIRIDE 2 MG TABLET PO SCH ×2 (08:06→18:28)
[2022-05-31 11:28] VITALS: BP 116/76
[2022-05-31 12:52] LABS: GLUCOMETER DEV NAME(LOC) 5S.2B; GLUCOSE,POINT OF CARE 142 MG/DL (70-110)
[2022-05-31 12:52] LABS: GLUCOMETER DEV NAME(LOC) 5S.2B; GLUCOSE,POINT OF CARE 111 MG/DL (70-110)
[2022-05-31 15:11] VITALS: BP 117/74
[2022-05-31 20:13] VITALS: BP 121/71
[2022-06-01 00:25] VITALS: BP 116/72
[2022-06-01 00:41] LABS: GLUCOMETER DEV NAME(LOC) 5N.1C; GLUCOSE,POINT OF CARE 188 MG/DL (70-110)
[2022-06-01 00:41] LABS: GLUCOMETER DEV NAME(LOC) 5N.1C; GLUCOSE,POINT OF CARE 138 MG/DL (70-110)
[2022-06-01] MEDS: MEROPENEM 1 GM in SODIUM CHLORIDE 0.9% 100 ML IV SCH ×3 (01:54→18:03)
[2022-06-01 05:13] VITALS: BP 114/78
[2022-06-01 06:28] LABS: BASOPHILS % (AUTO) 0.4 % (0.0-2.0); EOSINOPHILS % (AUTO) 3.1 % (1.0-6.0); LYMPHOCYTES # (AUTO) 1.6 K/uL (1.0-4.8); MEAN CORPUSCULAR HEMOGLOBIN 28.6 pg (26.0-34.0); MEAN CORPUSCULAR HGB CONC 33.2 G/dL (31.0-37.0); MEAN CORPUSCULAR VOLUME 86 fL (80-100); MONOCYTES # (AUTO) 0.9 K/uL (0.1-1.0); MONOCYTES % (AUTO) 11.3 % (2.0-9.0); NEUTROPHILS % (AUTO) 64.2 % (40.0-70.0); PLATELET COUNT (AUTO) 219 K/uL (150-450); RED BLOOD CELL COUNT(AUTO) 5.22 MIL/uL (4.50-5.90); RED CELL DISTRIBUTION WIDTH 13.6 % (11.5-14.5)
[2022-06-01] MEDS: INSULIN LISPRO 100 UNITS/ML SQ PRN ×3 (06:36→20:12)
[2022-06-01 06:57] LABS: ALANINE AMINOTRANSFERASE 55 U/L (12-78); ALBUMIN 2.8 g/dL (3.4-5.0); ALKALINE PHOSPHATASE 87 U/L (46-116); ANION GAP 7 mmol/L (8-16); ASPARTATE AMINOTRANSFERASE 32 U/L (15-37); BILIRUBIN,TOTAL 0.3 mg/dL (0.1-1.0); CARBON DIOXIDE 25 mmol/L (22-29); CHLORIDE 102 mmol/L (98-107); CREATININE 0.82 mg/dL (0.60-1.30); GLUCOSE,RANDOM 170 mg/dL (70-110); POTASSIUM 4.3 mmol/L (3.5-5.1); SODIUM SERUM 134 mmol/L (136-145); TOTAL PROTEIN, SERUM 7.3 g/dL (6.4-8.2); UREA NITROGEN, BLOOD 13 mg/dL (7-18)
[2022-06-01 07:19] LABS: GLOMERULAR FILTR. RATE CALC > 60 mL/min (>60)
[2022-06-01 08:11] VITALS: BP 113/70
[2022-06-01] MEDS: GLIMEPIRIDE 2 MG TABLET PO SCH ×2 (08:46→18:03)
[2022-06-01] MEDS: GABAPENTIN 400 MG CAPSULE PO SCH ×2 (08:46→20:13)
[2022-06-01] MEDS: LISINOPRIL 20 MG TABLET PO SCH (08:46)
[2022-06-01] MEDS: PANTOPRAZOLE SODIUM 40 MG DR TABLET PO SCH (08:46)
[2022-06-01] MEDS: HEPARIN SODIUM,PORCINE 5,000 UNITS/ML VIAL SQ SCH ×3 (08:50→23:43)
[2022-06-01 11:08] VITALS: BP 122/80
[2022-06-01 15:01] VITALS: BP 120/85
[2022-06-01 20:00] VITALS: BP 111/73
[2022-06-02] MEDS: MEROPENEM 1 GM in SODIUM CHLORIDE 0.9% 100 ML IV SCH ×3 (01:40→17:35)
[2022-06-02 05:41] LABS: BASOPHILS % (AUTO) 0.5 % (0.0-2.0); EOSINOPHILS % (AUTO) 3.6 % (1.0-6.0); HEMATOCRIT 43.6 % (41-53); HEMOGLOBIN 14.9 g/dL (13.5-17.5); LYMPHOCYTES # (AUTO) 1.8 K/uL (1.0-4.8); LYMPHOCYTES % (AUTO) 24.1 % (22.0-44.0); MEAN CORPUSCULAR HEMOGLOBIN 29.2 pg (26.0-34.0); MEAN CORPUSCULAR HGB CONC 34.1 G/dL (31.0-37.0); MEAN CORPUSCULAR VOLUME 86 fL (80-100); MONOCYTES # (AUTO) 0.7 K/uL (0.1-1.0); MONOCYTES % (AUTO) 9.2 % (2.0-9.0); NEUTROPHILS # (AUTO) 4.7 K/uL (1.8-7.7); NEUTROPHILS % (AUTO) 62.6 % (40.0-70.0); PLATELET COUNT (AUTO) 227 K/uL (150-450); RED BLOOD CELL COUNT(AUTO) 5.08 MIL/uL (4.50-5.90); RED CELL DISTRIBUTION WIDTH 13.6 % (11.5-14.5)
[2022-06-02 05:58] LABS: ALANINE AMINOTRANSFERASE 60 U/L (12-78); ALBUMIN 2.9 g/dL (3.4-5.0); ALKALINE PHOSPHATASE 86 U/L (46-116); ANION GAP 1 mmol/L (8-16); ASPARTATE AMINOTRANSFERASE 30 U/L (15-37); BILIRUBIN,TOTAL 0.3 mg/dL (0.1-1.0); CALCIUM, TOTAL 9.2 mg/dL (8.8-10.5); CARBON DIOXIDE 30 mmol/L (22-29); CHLORIDE 100 mmol/L (98-107); CREATININE 0.95 mg/dL (0.60-1.30); GLUCOSE,RANDOM 178 mg/dL (70-110); POTASSIUM 4.2 mmol/L (3.5-5.1); SODIUM SERUM 131 mmol/L (136-145); TOTAL PROTEIN, SERUM 7.3 g/dL (6.4-8.2); UREA NITROGEN, BLOOD 14 mg/dL (7-18)
[2022-06-02 05:59] LABS: GLOMERULAR FILTR. RATE CALC > 60 mL/min (>60)
[2022-06-02] MEDS: INSULIN LISPRO 100 UNITS/ML SQ PRN ×2 (06:46→12:12)
[2022-06-02 07:26] VITALS: BP 116/70
[2022-06-02 08:02] LABS: GLUCOMETER DEV NAME(LOC) 5N.1C; GLUCOSE,POINT OF CARE 231 MG/DL (70-110)
[2022-06-02 08:02] LABS: GLUCOMETER DEV NAME(LOC) 5N.1C; GLUCOSE,POINT OF CARE 138 MG/DL (70-110)
[2022-06-02 08:26] LABS: GLUCOMETER DEV NAME(LOC) 5S.2B; GLUCOSE,POINT OF CARE 152 MG/DL (70-110)
[2022-06-02 08:27] LABS: GLUCOMETER DEV NAME(LOC) 5S.2B; GLUCOSE,POINT OF CARE 163 MG/DL (70-110)
[2022-06-02 08:27] LABS: GLUCOMETER DEV NAME(LOC) 5S.2B; GLUCOSE,POINT OF CARE 141 MG/DL (70-110)
[2022-06-02] MEDS: PANTOPRAZOLE SODIUM 40 MG DR TABLET PO SCH (08:55)
[2022-06-02] MEDS: LISINOPRIL 20 MG TABLET PO SCH (08:55)
[2022-06-02] MEDS: GLIMEPIRIDE 2 MG TABLET PO SCH ×2 (08:55→17:35)
[2022-06-02] MEDS: GABAPENTIN 400 MG CAPSULE PO SCH (08:55)
[2022-06-02] MEDS: HEPARIN SODIUM,PORCINE 5,000 UNITS/ML VIAL SQ SCH ×2 (08:56→17:28)
[2022-06-02 11:22] VITALS: BP 107/72
[2022-06-02] MEDS ORDERED: GADOTERATE MEGLUMINE 10 MMOL/20 ML VIAL IVP ONE (14:27)
[2022-06-02 17:41] LABS: GLUCOMETER DEV NAME(LOC) 5N.1C; GLUCOSE,POINT OF CARE 143 MG/DL (70-110)
[2022-06-02 18:21] LABS: GLUCOMETER DEV NAME(LOC) 5N.1C; GLUCOSE,POINT OF CARE 139 MG/DL (70-110)
[2022-06-02] MEDS ORDERED: SULF-261 PO (18:54)
== END 2022-06-02 21:30 | disposition home or self-care (01) | DRG 720 ==
LOC: EMS 06:17 → 5S 20:00
PROVIDERS: ADMIT Hospitalist; ATTEND Hospitalist
DX: A41.51 Sepsis due to Escherichia coli [E. coli] (principal); E44.0 Moderate protein-calorie malnutrition; E87.1 Hypo-osmolality and hyponatremia; N12 Tubulo-interstitial nephritis, not specified as acute or chronic; E11.9 Type 2 diabetes mellitus without complications; I10 Essential (primary) hypertension; R09.02 Hypoxemia; Z20.822 Contact with and (suspected) exposure to COVID-19; Z16.24 Resistance to multiple antibiotics; F41.9 Anxiety disorder, unspecified; M54.50 Low back pain, unspecified; K59.00 Constipation, unspecified; Z68.33 Body mass index [BMI] 33.0-33.9, adult; Z87.891 Personal history of nicotine dependence
CPT/HCPCS: 71045; 72158; 74177; 80053; 81001; 82962; 83880; 84484; 85025; 85379; 85610; 85730; 87040; 87077; 87086; 87186; 87205; 87804; 93005; 93306; 99285; 99291; J0696; J1644; J1815; J1885; J1940; J2185; J2405; J7030; J7050; Q9967; 36415-L1; 36415-TC

== ENCOUNTER 2022-06-22 06:19 | Inpatient (IN) | payer OTHER ==
[~2022-06-22] VITALS: Ht 175.3 cm; Wt 101.1 kg
[~2022-06-22 06:19] MED LIST changes: -ACET-66 PO; -CEPH-558 PO; +FLUT16H NASAL; -IBUP-1492 PO; -LEVO-72 PO; +SEMA14TA2 PO; +SULF-261 PO; +TAMS-13 PO
[2022-06-22] MEDS ORDERED: 0.9% SODIUM CHLORIDE 10 ML SYRINGE IVP PRN (07:15)
[2022-06-22] MEDS ORDERED: SODIUM CHLORIDE 0.9% 3,050 ML IV ONE (07:15)
[2022-06-22 07:34] LABS: APPEARANCE,URINE CLEAR (CLEAR); BILIRUBIN,URINE NEGATIVE (NEGATIVE); GLUCOSE, URINE (UA) 150-200 mg/dL (NEGATIVE); LEUKOCYTE ESTERASE ,URINE LARGE (NEGATIVE); NITRATE,URINE POSITIVE (NEGATIVE); OCCULT BLOOD,URINE NEGATIVE (NEGATIVE); PROTEIN,URINE NEGATIVE (NEGATIVE); SPECIFIC GRAVITIY, URINE 1.021 (1.003-1.030); UROBILINOGEN,URINE <=1.0 mg/dL (<=1.0)
[2022-06-22 07:38] LABS: BASOPHILS % (AUTO) 0.3 % (0.0-2.0); EOSINOPHILS % (AUTO) 0.3 % (1.0-6.0); HEMATOCRIT 43.7 % (41-53); HEMOGLOBIN 15.3 g/dL (13.5-17.5); LYMPHOCYTES # (AUTO) 0.4 K/uL (1.0-4.8); LYMPHOCYTES % (AUTO) 3.3 % (22.0-44.0); MEAN CORPUSCULAR VOLUME 86 fL (80-100); MONOCYTES # (AUTO) 0.8 K/uL (0.1-1.0); MONOCYTES % (AUTO) 6.6 % (2.0-9.0); NEUTROPHILS # (AUTO) 11.3 K/uL (1.8-7.7); PLATELET COUNT (AUTO) 160 K/uL (150-450); RED BLOOD CELL COUNT(AUTO) 5.11 MIL/uL (4.50-5.90); RED CELL DISTRIBUTION WIDTH 13.8 % (11.5-14.5)
[2022-06-22 07:41] LABS: NEUTROPHILS % (AUTO) 89.5 % (40.0-70.0)
[2022-06-22] MEDS ORDERED: ACETAMINOPHEN 500 MG TABLET PO ONE (07:45)
[2022-06-22 07:46] LABS: ANION GAP 6 mmol/L (8-16); CALCIUM, TOTAL 8.8 mg/dL (8.8-10.5); CARBON DIOXIDE 26 mmol/L (22-29); CHLORIDE 100 mmol/L (98-107); CREATININE 1.09 mg/dL (0.60-1.30); GLUCOSE,RANDOM 257 mg/dL (70-110); POTASSIUM 3.8 mmol/L (3.5-5.1); SODIUM SERUM 132 mmol/L (136-145); UREA NITROGEN, BLOOD 18 mg/dL (7-18)
[2022-06-22 07:47] LABS: GLOMERULAR FILTR. RATE CALC > 60 mL/min (>60)
[2022-06-22 07:53] LABS: ALANINE AMINOTRANSFERASE 27 U/L (12-78); ALBUMIN 3.7 g/dL (3.4-5.0); ALKALINE PHOSPHATASE 107 U/L (46-116); ASPARTATE AMINOTRANSFERASE 18 U/L (15-37); BILIRUBIN,TOTAL 0.9 mg/dL (0.1-1.0); TOTAL PROTEIN, SERUM 7.8 g/dL (6.4-8.2)
[2022-06-22 07:54] LABS: BACTERIA,URINE Many /HPF (None Seen); RBC,URINE None Seen /HPF (0-2); SQUAMOUS EPITHELIAL CELL,UR Few /LPF (None Seen); WBC,URINE 26-50 /HPF (0-5)
[2022-06-22 08:04] LABS: COVID AG,FIA SOURCE NASOPHARYNGEAL
[2022-06-22 08:06] LABS: LACTIC ACID 2.3 mmol/L (0.4-2.0)
[2022-06-22] MEDS ORDERED: CefTRIAXone 1 GM/DEXTROSE 50 ML IV ONE ×2 (08:30→11:00)
[2022-06-22 09:00] LABS: INFLUENZA TYPE A NEGATIVE FOR TYPE A (NEGATIVE); INFLUENZA TYPE B NEGATIVE FOR TYPE B (NEGATIVE)
[2022-06-22 10:26] VITALS: BP 132/81
[2022-06-22 15:16] LABS: GLUCOMETER DEV NAME(LOC) 6N.1; GLUCOSE,POINT OF CARE 252 MG/DL (70-110)
[2022-06-22 16:01] VITALS: BP 115/74
[2022-06-22] MEDS ORDERED: MORPHINE SULFATE 2 MG/ML SYRINGE IVP PRN (19:30)
[2022-06-22] MEDS ORDERED: ALBUTEROL SULFATE 2.5 MG/0.5 ML NEB SOLUTION NEB PRN (19:30)
[2022-06-22] MEDS ORDERED: ONDANSETRON HCL 4 MG/2 ML VIAL IVP PRN (19:30)
[2022-06-22] MEDS ORDERED: ACETAMINOPHEN 325 MG TABLET PO PRN (19:30)
[2022-06-22] MEDS ORDERED: BISACODYL 10 MG RECTAL RECTAL SUPPOSITORY PR PRN (19:30)
[2022-06-22] MEDS ORDERED: ZOLPIDEM TARTRATE 5 MG TABLET PO PRN (19:30)
[2022-06-22] MEDS ORDERED: HYDROCODONE/ACETAMINOPHEN 5-325 MG TABLET PO PRN (19:30)
[2022-06-22] MEDS ORDERED: IPRATROPIUM BROMIDE 0.5 MG/2.5 ML NEB SOLUTION NEB PRN (19:30)
[2022-06-22] MEDS ORDERED: MAGNESIUM HYDROXIDE SUSPENSION 30 ML UDCUP PO PRN (19:30)
[2022-06-22 19:49] VITALS: BP 112/72
[2022-06-22 20:11] LABS: GLUCOMETER DEV NAME(LOC) 6N.2B; GLUCOSE,POINT OF CARE 196 MG/DL (70-110)
[2022-06-22] MEDS: GABAPENTIN 400 MG CAPSULE PO SCH (20:22)
[2022-06-22] MEDS: FLUTICASONE PROPIONATE 50 MCG/SPRAY 16 GM NASAL SPRAY NASAL SCH (20:22)
[2022-06-22 22:36] LABS: GLUCOMETER DEV NAME(LOC) 6N.2B; GLUCOSE,POINT OF CARE 160 MG/DL (70-110)
[2022-06-22] MEDS: HEPARIN SODIUM,PORCINE 5,000 UNITS/ML VIAL SQ SCH (23:24)
[2022-06-23 05:12] VITALS: BP 101/59
[2022-06-23] MEDS ORDERED: MISC MED-CONVERTED FROM AMBULATORY (Semaglutide (Rybelsus) 14 MG) PO SCH (06:30)
[2022-06-23 06:31] LABS: GLUCOMETER DEV NAME(LOC) 6N.2B; GLUCOSE,POINT OF CARE 168 MG/DL (70-110)
[2022-06-23 08:00] VITALS: BP 131/80
[2022-06-23] MEDS: PANTOPRAZOLE SODIUM 40 MG DR TABLET PO SCH (08:35)
[2022-06-23] MEDS: TAMSULOSIN HCL 0.4 MG CAPSULE PO SCH (08:35)
[2022-06-23] MEDS: GLIMEPIRIDE 2 MG TABLET PO SCH ×2 (08:35→17:09)
[2022-06-23] MEDS: GABAPENTIN 400 MG CAPSULE PO SCH ×2 (08:35→20:29)
[2022-06-23] MEDS: MetFORMIN HCL 500 MG TABLET PO SCH ×2 (08:35→17:09)
[2022-06-23] MEDS: LISINOPRIL 20 MG TABLET PO SCH (08:35)
[2022-06-23] MEDS: HEPARIN SODIUM,PORCINE 5,000 UNITS/ML VIAL SQ SCH ×2 (08:36→17:09)
[2022-06-23] MEDS: FLUTICASONE PROPIONATE 50 MCG/SPRAY 16 GM NASAL SPRAY NASAL SCH ×2 (08:41→21:00)
[2022-06-23] MEDS: MEROPENEM 1 GM in SODIUM CHLORIDE 0.9% 100 ML IV SCH ×2 (14:45→22:56)
[2022-06-23 16:23] LABS: BASOPHILS % (AUTO) 0.2 % (0.0-2.0); EOSINOPHILS % (AUTO) 1.9 % (1.0-6.0); HEMATOCRIT 42.5 % (41-53); HEMOGLOBIN 13.9 g/dL (13.5-17.5); LYMPHOCYTES # (AUTO) 1.5 K/uL (1.0-4.8); LYMPHOCYTES % (AUTO) 13.4 % (22.0-44.0); MEAN CORPUSCULAR HEMOGLOBIN 28.6 pg (26.0-34.0); MEAN CORPUSCULAR HGB CONC 32.8 G/dL (31.0-37.0); MEAN CORPUSCULAR VOLUME 87 fL (80-100); MONOCYTES % (AUTO) 8.5 % (2.0-9.0); NEUTROPHILS # (AUTO) 8.7 K/uL (1.8-7.7); PLATELET COUNT (AUTO) 153 K/uL (150-450); RED BLOOD CELL COUNT(AUTO) 4.88 MIL/uL (4.50-5.90); RED CELL DISTRIBUTION WIDTH 13.9 % (11.5-14.5)
[2022-06-23 16:31] LABS: ANION GAP 6 mmol/L (8-16); CALCIUM, TOTAL 8.5 mg/dL (8.8-10.5); CARBON DIOXIDE 27 mmol/L (22-29); CHLORIDE 102 mmol/L (98-107); CREATININE 0.97 mg/dL (0.60-1.30); GLUCOSE,RANDOM 150 mg/dL (70-110); SODIUM SERUM 135 mmol/L (136-145); UREA NITROGEN, BLOOD 13 mg/dL (7-18)
[2022-06-23 16:33] LABS: GLOMERULAR FILTR. RATE CALC > 60 mL/min (>60)
[2022-06-23 16:37] LABS: ALANINE AMINOTRANSFERASE 23 U/L (12-78); ALBUMIN 3.1 g/dL (3.4-5.0); ALKALINE PHOSPHATASE 73 U/L (46-116); ASPARTATE AMINOTRANSFERASE 13 U/L (15-37); BILIRUBIN,TOTAL 0.4 mg/dL (0.1-1.0); TOTAL PROTEIN, SERUM 7.2 g/dL (6.4-8.2)
[2022-06-23 17:02] VITALS: BP 133/88
[2022-06-23 20:00] VITALS: BP 132/87
[2022-06-23 22:07] LABS: GLUCOMETER DEV NAME(LOC) 6N.2B; GLUCOSE,POINT OF CARE 119 MG/DL (70-110)
[2022-06-23 22:07] LABS: GLUCOMETER DEV NAME(LOC) 6N.2B; GLUCOSE,POINT OF CARE 174 MG/DL (70-110)
[2022-06-24] MEDS: HEPARIN SODIUM,PORCINE 5,000 UNITS/ML VIAL SQ SCH ×4 (00:17→23:21)
[2022-06-24 05:23] VITALS: BP 109/76
[2022-06-24] MEDS: MEROPENEM 1 GM in SODIUM CHLORIDE 0.9% 100 ML IV SCH ×3 (06:14→21:28)
[2022-06-24] MEDS ORDERED: SODIUM CHLORIDE 0.9% 1,000 ML ONE (07:45)
[2022-06-24] MEDS: MetFORMIN HCL 500 MG TABLET PO SCH ×2 (08:01→18:05)
[2022-06-24] MEDS: PANTOPRAZOLE SODIUM 40 MG DR TABLET PO SCH (08:01)
[2022-06-24] MEDS: FLUTICASONE PROPIONATE 50 MCG/SPRAY 16 GM NASAL SPRAY NASAL SCH ×2 (08:02→21:00)
[2022-06-24] MEDS: GLIMEPIRIDE 2 MG TABLET PO SCH ×2 (08:02→18:06)
[2022-06-24] MEDS: GABAPENTIN 400 MG CAPSULE PO SCH ×2 (08:02→19:59)
[2022-06-24 08:42] VITALS: BP 118/76
[2022-06-24] MEDS: LISINOPRIL 20 MG TABLET PO SCH (09:00)
[2022-06-24] MEDS: TAMSULOSIN HCL 0.4 MG CAPSULE PO SCH (09:29)
[2022-06-24 12:48] LABS: BASOPHILS % (AUTO) 0.3 % (0.0-2.0); HEMATOCRIT 45.6 % (41-53); HEMOGLOBIN 15.2 g/dL (13.5-17.5); LYMPHOCYTES # (AUTO) 1.6 K/uL (1.0-4.8); LYMPHOCYTES % (AUTO) 20.8 % (22.0-44.0); MEAN CORPUSCULAR HEMOGLOBIN 28.8 pg (26.0-34.0); MEAN CORPUSCULAR HGB CONC 33.3 G/dL (31.0-37.0); MEAN CORPUSCULAR VOLUME 86 fL (80-100); MONOCYTES # (AUTO) 0.6 K/uL (0.1-1.0); MONOCYTES % (AUTO) 7.1 % (2.0-9.0); NEUTROPHILS # (AUTO) 5.5 K/uL (1.8-7.7); NEUTROPHILS % (AUTO) 68.8 % (40.0-70.0); PLATELET COUNT (AUTO) 181 K/uL (150-450); RED BLOOD CELL COUNT(AUTO) 5.28 MIL/uL (4.50-5.90)
[2022-06-24 12:49] LABS: ANION GAP 7 mmol/L (8-16); CALCIUM, TOTAL 8.9 mg/dL (8.8-10.5); CARBON DIOXIDE 29 mmol/L (22-29); CHLORIDE 103 mmol/L (98-107); CREATININE 0.78 mg/dL (0.60-1.30); GLOMERULAR FILTR. RATE CALC > 60 mL/min (>60); GLUCOSE,RANDOM 122 mg/dL (70-110); POTASSIUM 4.3 mmol/L (3.5-5.1); SODIUM SERUM 139 mmol/L (136-145); UREA NITROGEN, BLOOD 9 mg/dL (7-18)
[2022-06-24 12:54] LABS: ALANINE AMINOTRANSFERASE 22 U/L (12-78); ALBUMIN 3.2 g/dL (3.4-5.0); ALKALINE PHOSPHATASE 79 U/L (46-116); ASPARTATE AMINOTRANSFERASE 16 U/L (15-37); BILIRUBIN,TOTAL 0.3 mg/dL (0.1-1.0); TOTAL PROTEIN, SERUM 7.7 g/dL (6.4-8.2)
[2022-06-24 14:52] LABS: GLUCOMETER DEV NAME(LOC) 6N.1; GLUCOSE,POINT OF CARE 145 MG/DL (70-110)
[2022-06-24 14:52] LABS: GLUCOMETER DEV NAME(LOC) 6N.1; GLUCOSE,POINT OF CARE 124 MG/DL (70-110)
[2022-06-24 15:48] VITALS: BP 120/80
[2022-06-24] MEDS: VANCOMYCIN HCL 1.25 GM in DEXTROSE 5%-WATER 250 ML IV SCH ×2 (16:27→23:21)
[2022-06-24] MEDS ORDERED: HYDR-3831 PO (19:49)
[2022-06-24 20:00] VITALS: BP 128/81
[2022-06-24 20:01] LABS: GLUCOMETER DEV NAME(LOC) 6N.2B; GLUCOSE,POINT OF CARE 208 MG/DL (70-110)
[2022-06-24 23:06] LABS: GLUCOMETER DEV NAME(LOC) 6N.2B; GLUCOSE,POINT OF CARE 128 MG/DL (70-110)
[2022-06-25 05:00] VITALS: BP 136/83
[2022-06-25] MEDS: MEROPENEM 1 GM in SODIUM CHLORIDE 0.9% 100 ML IV SCH ×3 (05:33→21:38)
[2022-06-25 07:34] LABS: ANION GAP 8 mmol/L (8-16); CALCIUM, TOTAL 8.7 mg/dL (8.8-10.5); CARBON DIOXIDE 26 mmol/L (22-29); CHLORIDE 104 mmol/L (98-107); CREATININE 0.82 mg/dL (0.60-1.30); GLUCOSE,RANDOM 142 mg/dL (70-110); SODIUM SERUM 138 mmol/L (136-145); UREA NITROGEN, BLOOD 9 mg/dL (7-18)
[2022-06-25 07:38] LABS: GLOMERULAR FILTR. RATE CALC > 60 mL/min (>60)
[2022-06-25] MEDS: VANCOMYCIN HCL 1.25 GM in DEXTROSE 5%-WATER 250 ML IV SCH ×3 (07:58→23:44)
[2022-06-25 08:00] VITALS: BP 134/87
[2022-06-25] MEDS: PANTOPRAZOLE SODIUM 40 MG DR TABLET PO SCH (08:08)
[2022-06-25] MEDS: MetFORMIN HCL 500 MG TABLET PO SCH ×2 (08:08→17:03)
[2022-06-25] MEDS: TAMSULOSIN HCL 0.4 MG CAPSULE PO SCH (08:08)
[2022-06-25] MEDS: GABAPENTIN 400 MG CAPSULE PO SCH ×2 (08:09→20:29)
[2022-06-25] MEDS: GLIMEPIRIDE 2 MG TABLET PO SCH ×2 (08:09→17:03)
[2022-06-25] MEDS: LISINOPRIL 20 MG TABLET PO SCH (08:09)
[2022-06-25] MEDS: HEPARIN SODIUM,PORCINE 5,000 UNITS/ML VIAL SQ SCH ×3 (08:10→23:45)
[2022-06-25] MEDS: FLUTICASONE PROPIONATE 50 MCG/SPRAY 16 GM NASAL SPRAY NASAL SCH ×2 (08:10→20:29)
[2022-06-25 10:46] LABS: GLUCOMETER DEV NAME(LOC) 6N.2B; GLUCOSE,POINT OF CARE 154 MG/DL (70-110)
[2022-06-25] MEDS ORDERED: IOHEXOL 350 MG/ML 100 ML VIAL ONE (12:21)
[2022-06-25] MEDS ORDERED: SODIUM CHLORIDE 0.9% 100 ML ONE (12:21)
[2022-06-25 13:31] LABS: GLUCOMETER DEV NAME(LOC) 6N.1; GLUCOSE,POINT OF CARE 140 MG/DL (70-110)
[2022-06-25 15:26] VITALS: BP 130/84
[2022-06-25] MEDS ORDERED: DEXTROSE 50%-WATER 25 GM/50 ML SYRINGE IVP PRN (18:45)
[2022-06-25 20:37] VITALS: BP 134/86
[2022-06-26] MEDS: MEROPENEM 1 GM in SODIUM CHLORIDE 0.9% 100 ML IV SCH (05:21)
[2022-06-26 07:49] VITALS: BP 137/74
[2022-06-26] MEDS: VANCOMYCIN HCL 1.25 GM in DEXTROSE 5%-WATER 250 ML IV SCH (08:04)
[2022-06-26] MEDS: TAMSULOSIN HCL 0.4 MG CAPSULE PO SCH (08:07)
[2022-06-26] MEDS: PANTOPRAZOLE SODIUM 40 MG DR TABLET PO SCH (08:07)
[2022-06-26] MEDS: HEPARIN SODIUM,PORCINE 5,000 UNITS/ML VIAL SQ SCH ×3 (08:07→23:39)
[2022-06-26] MEDS: MetFORMIN HCL 500 MG TABLET PO SCH ×2 (08:07→18:00)
[2022-06-26] MEDS: LISINOPRIL 20 MG TABLET PO SCH (08:07)
[2022-06-26] MEDS: GLIMEPIRIDE 2 MG TABLET PO SCH ×2 (08:07→18:11)
[2022-06-26] MEDS: GABAPENTIN 400 MG CAPSULE PO SCH ×2 (08:07→20:23)
[2022-06-26] MEDS: FLUTICASONE PROPIONATE 50 MCG/SPRAY 16 GM NASAL SPRAY NASAL SCH ×2 (08:08→20:28)
[2022-06-26 08:45] LABS: ANION GAP 8 mmol/L (8-16); CALCIUM, TOTAL 8.8 mg/dL (8.8-10.5); CARBON DIOXIDE 27 mmol/L (22-29); CHLORIDE 104 mmol/L (98-107); CREATININE 0.97 mg/dL (0.60-1.30); GLUCOSE,RANDOM 131 mg/dL (70-110); POTASSIUM 4.1 mmol/L (3.5-5.1); SODIUM SERUM 139 mmol/L (136-145); UREA NITROGEN, BLOOD 11 mg/dL (7-18); VANCOMYCIN,RANDOM 13.6 mcg/mL (25.0-50.0)
[2022-06-26 08:46] LABS: GLOMERULAR FILTR. RATE CALC > 60 mL/min (>60)
[2022-06-26] MEDS: ERTAPENEM SODIUM 1 GM in SODIUM CHLORIDE 0.9% 50 ML IV SCH (13:34)
[2022-06-26 15:52] VITALS: BP 111/59
[2022-06-26] MEDS: VANCOMYCIN HCL 1.5 GM in DEXTROSE 5%-WATER 250 ML IV SCH ×2 (16:23→23:39)
[2022-06-26] MEDS: INSULIN LISPRO 100 UNITS/ML SQ PRN ×2 (18:11→20:27)
[2022-06-26 19:46] VITALS: BP 120/72
[2022-06-26 20:01] LABS: GLUCOMETER DEV NAME(LOC) 6N.1; GLUCOSE,POINT OF CARE 147 MG/DL (70-110)
[2022-06-26 20:06] LABS: GLUCOMETER DEV NAME(LOC) 6N.2B; GLUCOSE,POINT OF CARE 136 MG/DL (70-110)
[2022-06-26 20:06] LABS: GLUCOMETER DEV NAME(LOC) 6N.2B; GLUCOSE,POINT OF CARE 101 MG/DL (70-110)
[2022-06-26 20:06] LABS: GLUCOMETER DEV NAME(LOC) 6N.2B; GLUCOSE,POINT OF CARE 182 MG/DL (70-110)
[2022-06-26 23:16] LABS: GLUCOMETER DEV NAME(LOC) 6N.1; GLUCOSE,POINT OF CARE 176 MG/DL (70-110)
[2022-06-26] MEDS ORDERED: SODIUM CHLORIDE 0.9% 250 ML IV ONE (23:33)
[2022-06-27 04:35] VITALS: BP 110/73
[2022-06-27] MEDS: INSULIN LISPRO 100 UNITS/ML SQ PRN ×3 (05:54→17:38)
[2022-06-27 07:31] LABS: GLUCOMETER DEV NAME(LOC) 6N.1; GLUCOSE,POINT OF CARE 144 MG/DL (70-110)
[2022-06-27] MEDS: MetFORMIN HCL 500 MG TABLET PO SCH ×2 (08:00→17:41)
[2022-06-27 08:27] VITALS: BP 120/71
[2022-06-27 08:40] LABS: ANION GAP 7 mmol/L (8-16); CALCIUM, TOTAL 8.9 mg/dL (8.8-10.5); CARBON DIOXIDE 27 mmol/L (22-29); CHLORIDE 102 mmol/L (98-107); CREATININE 0.82 mg/dL (0.60-1.30); GLUCOSE,RANDOM 110 mg/dL (70-110); SODIUM SERUM 136 mmol/L (136-145); UREA NITROGEN, BLOOD 13 mg/dL (7-18)
[2022-06-27 08:42] LABS: GLOMERULAR FILTR. RATE CALC > 60 mL/min (>60)
[2022-06-27] MEDS: HEPARIN SODIUM,PORCINE 5,000 UNITS/ML VIAL SQ SCH ×3 (08:46→23:25)
[2022-06-27] MEDS: LISINOPRIL 20 MG TABLET PO SCH (08:46)
[2022-06-27] MEDS: PANTOPRAZOLE SODIUM 40 MG DR TABLET PO SCH (08:46)
[2022-06-27] MEDS: GLIMEPIRIDE 2 MG TABLET PO SCH ×2 (08:46→17:40)
[2022-06-27] MEDS: TAMSULOSIN HCL 0.4 MG CAPSULE PO SCH (08:46)
[2022-06-27] MEDS: GABAPENTIN 400 MG CAPSULE PO SCH ×2 (08:46→20:16)
[2022-06-27] MEDS: VANCOMYCIN HCL 1.5 GM in DEXTROSE 5%-WATER 250 ML IV SCH ×2 (08:46→16:02)
[2022-06-27] MEDS: FLUTICASONE PROPIONATE 50 MCG/SPRAY 16 GM NASAL SPRAY NASAL SCH ×2 (08:47→20:49)
[2022-06-27 12:11] LABS: GLUCOMETER DEV NAME(LOC) 6N.1; GLUCOSE,POINT OF CARE 149 MG/DL (70-110)
[2022-06-27] MEDS: ERTAPENEM SODIUM 1 GM in SODIUM CHLORIDE 0.9% 50 ML IV SCH (14:23)
[2022-06-27 16:19] VITALS: BP 110/63
[2022-06-27 19:56] LABS: GLUCOMETER DEV NAME(LOC) 6N.2B; GLUCOSE,POINT OF CARE 221 MG/DL (70-110)
[2022-06-27 20:00] VITALS: BP 106/71
[2022-06-27 21:02] LABS: GLUCOMETER DEV NAME(LOC) 6N.2B; GLUCOSE,POINT OF CARE 131 MG/DL (70-110)
[2022-06-28 04:45] VITALS: BP 101/62
[2022-06-28] MEDS: INSULIN LISPRO 100 UNITS/ML SQ PRN ×4 (05:29→20:39)
[2022-06-28 07:22] LABS: GLUCOMETER DEV NAME(LOC) 6N.2B; GLUCOSE,POINT OF CARE 156 MG/DL (70-110)
[2022-06-28 07:44] LABS: ANION GAP 5 mmol/L (8-16); CARBON DIOXIDE 28 mmol/L (22-29); CHLORIDE 103 mmol/L (98-107); CREATININE 0.79 mg/dL (0.60-1.30); GLUCOSE,RANDOM 122 mg/dL (70-110); SODIUM SERUM 136 mmol/L (136-145); UREA NITROGEN, BLOOD 13 mg/dL (7-18)
[2022-06-28 07:48] LABS: BASOPHILS % (AUTO) 0.5 % (0.0-2.0); EOSINOPHILS % (AUTO) 4.1 % (1.0-6.0); GLOMERULAR FILTR. RATE CALC > 60 mL/min (>60); HEMOGLOBIN 14.9 g/dL (13.5-17.5); LYMPHOCYTES # (AUTO) 1.9 K/uL (1.0-4.8); LYMPHOCYTES % (AUTO) 22.4 % (22.0-44.0); MEAN CORPUSCULAR HEMOGLOBIN 29.2 pg (26.0-34.0); MEAN CORPUSCULAR HGB CONC 33.9 G/dL (31.0-37.0); MEAN CORPUSCULAR VOLUME 86 fL (80-100); MONOCYTES # (AUTO) 0.7 K/uL (0.1-1.0); MONOCYTES % (AUTO) 8.5 % (2.0-9.0); NEUTROPHILS # (AUTO) 5.5 K/uL (1.8-7.7); NEUTROPHILS % (AUTO) 64.5 % (40.0-70.0); PLATELET COUNT (AUTO) 203 K/uL (150-450); RED BLOOD CELL COUNT(AUTO) 5.11 MIL/uL (4.50-5.90); RED CELL DISTRIBUTION WIDTH 13.9 % (11.5-14.5)
[2022-06-28 07:54] VITALS: BP 125/78
[2022-06-28] MEDS: GABAPENTIN 400 MG CAPSULE PO SCH ×2 (09:09→20:32)
[2022-06-28] MEDS: HEPARIN SODIUM,PORCINE 5,000 UNITS/ML VIAL SQ SCH ×3 (09:09→23:07)
[2022-06-28] MEDS: LISINOPRIL 20 MG TABLET PO SCH (09:09)
[2022-06-28] MEDS: PANTOPRAZOLE SODIUM 40 MG DR TABLET PO SCH (09:10)
[2022-06-28] MEDS: MetFORMIN HCL 500 MG TABLET PO SCH ×2 (09:10→16:57)
[2022-06-28] MEDS: GLIMEPIRIDE 2 MG TABLET PO SCH ×2 (09:10→16:56)
[2022-06-28] MEDS: TAMSULOSIN HCL 0.4 MG CAPSULE PO SCH (09:10)
[2022-06-28] MEDS: FLUTICASONE PROPIONATE 50 MCG/SPRAY 16 GM NASAL SPRAY NASAL SCH ×2 (09:15→20:31)
[2022-06-28 12:03] LABS: GLUCOMETER DEV NAME(LOC) 6N.2B; GLUCOSE,POINT OF CARE 161 MG/DL (70-110)
[2022-06-28] MEDS: ERTAPENEM SODIUM 1 GM in SODIUM CHLORIDE 0.9% 50 ML IV SCH (13:20)
[2022-06-28 15:19] VITALS: BP 96/78
[2022-06-28 17:33] LABS: GLUCOMETER DEV NAME(LOC) 6N.2B; GLUCOSE,POINT OF CARE 166 MG/DL (70-110)
[2022-06-28 19:12] VITALS: BP 112/70
[2022-06-29 05:04] VITALS: BP 115/70
[2022-06-29 05:38] LABS: GLUCOMETER DEV NAME(LOC) 6N.2B; GLUCOSE,POINT OF CARE 164 MG/DL (70-110)
[2022-06-29 07:45] VITALS: BP 109/68
[2022-06-29 08:08] LABS: GLUCOMETER DEV NAME(LOC) 6N.1; GLUCOSE,POINT OF CARE 124 MG/DL (70-110)
[2022-06-29] MEDS: LISINOPRIL 20 MG TABLET PO SCH (09:00)
[2022-06-29 09:22] LABS: ANION GAP 4 mmol/L (8-16); CALCIUM, TOTAL 8.9 mg/dL (8.8-10.5); CARBON DIOXIDE 30 mmol/L (22-29); CHLORIDE 102 mmol/L (98-107); CREATININE 0.87 mg/dL (0.60-1.30); GLUCOSE,RANDOM 115 mg/dL (70-110); POTASSIUM 4.2 mmol/L (3.5-5.1); SODIUM SERUM 136 mmol/L (136-145); UREA NITROGEN, BLOOD 17 mg/dL (7-18)
[2022-06-29 09:24] LABS: GLOMERULAR FILTR. RATE CALC > 60 mL/min (>60)
[2022-06-29] MEDS: GLIMEPIRIDE 2 MG TABLET PO SCH ×2 (09:50→17:03)
[2022-06-29] MEDS: HEPARIN SODIUM,PORCINE 5,000 UNITS/ML VIAL SQ SCH ×3 (09:51→23:06)
[2022-06-29] MEDS: GABAPENTIN 400 MG CAPSULE PO SCH ×2 (09:51→20:17)
[2022-06-29] MEDS: TAMSULOSIN HCL 0.4 MG CAPSULE PO SCH (09:51)
[2022-06-29] MEDS: MetFORMIN HCL 500 MG TABLET PO SCH ×2 (09:51→17:02)
[2022-06-29] MEDS: PANTOPRAZOLE SODIUM 40 MG DR TABLET PO SCH (09:51)
[2022-06-29] MEDS: FLUTICASONE PROPIONATE 50 MCG/SPRAY 16 GM NASAL SPRAY NASAL SCH ×2 (10:08→21:00)
[2022-06-29] MEDS: ERTAPENEM SODIUM 1 GM in SODIUM CHLORIDE 0.9% 50 ML IV SCH (11:40)
[2022-06-29] MEDS: INSULIN LISPRO 100 UNITS/ML SQ PRN ×3 (11:53→20:17)
[2022-06-29 12:38] LABS: GLUCOMETER DEV NAME(LOC) 6N.2B; GLUCOSE,POINT OF CARE 169 MG/DL (70-110)
[2022-06-29 15:58] VITALS: BP 108/61
[2022-06-29 20:00] VITALS: BP 132/80
[2022-06-29 22:53] LABS: GLUCOMETER DEV NAME(LOC) 6N.2B; GLUCOSE,POINT OF CARE 151 MG/DL (70-110)
[2022-06-29 22:53] LABS: GLUCOMETER DEV NAME(LOC) 6N.2B; GLUCOSE,POINT OF CARE 163 MG/DL (70-110)
[2022-06-30 04:12] VITALS: BP 107/67
[2022-06-30] MEDS: INSULIN LISPRO 100 UNITS/ML SQ PRN ×2 (06:25→11:08)
[2022-06-30 07:29] VITALS: BP 136/86
[2022-06-30] MEDS: LISINOPRIL 20 MG TABLET PO SCH (08:29)
[2022-06-30] MEDS: GABAPENTIN 400 MG CAPSULE PO SCH (08:29)
[2022-06-30] MEDS: PANTOPRAZOLE SODIUM 40 MG DR TABLET PO SCH (08:29)
[2022-06-30] MEDS: TAMSULOSIN HCL 0.4 MG CAPSULE PO SCH (08:29)
[2022-06-30] MEDS: GLIMEPIRIDE 2 MG TABLET PO SCH ×2 (08:30→18:17)
[2022-06-30] MEDS: MetFORMIN HCL 500 MG TABLET PO SCH ×2 (08:30→18:17)
[2022-06-30] MEDS: FLUTICASONE PROPIONATE 50 MCG/SPRAY 16 GM NASAL SPRAY NASAL SCH (08:30)
[2022-06-30] MEDS: HEPARIN SODIUM,PORCINE 5,000 UNITS/ML VIAL SQ SCH ×2 (08:30→15:40)
[2022-06-30 10:33] LABS: GLUCOMETER DEV NAME(LOC) 6N.2B; GLUCOSE,POINT OF CARE 167 MG/DL (70-110)
[2022-06-30] MEDS: ERTAPENEM SODIUM 1 GM in SODIUM CHLORIDE 0.9% 50 ML IV SCH (14:00)
[2022-06-30 15:18] VITALS: BP 104/69
[2022-06-30 16:52] LABS: GLUCOMETER DEV NAME(LOC) 6N.2B; GLUCOSE,POINT OF CARE 172 MG/DL (70-110)
[2022-07-01 03:43] LABS: GLUCOMETER DEV NAME(LOC) 6N.1; GLUCOSE,POINT OF CARE 120 MG/DL (70-110)
== END 2022-06-30 19:35 | DRG 720 ==
LOC: EMS 06:21 → 6S 10:24
PROVIDERS: ADMIT Hospitalist; ATTEND Hospitalist
DX: A41.2 Sepsis due to unspecified staphylococcus (principal); E44.1 Mild protein-calorie malnutrition; E87.1 Hypo-osmolality and hyponatremia; N12 Tubulo-interstitial nephritis, not specified as acute or chronic; K76.0 Fatty (change of) liver, not elsewhere classified; E11.9 Type 2 diabetes mellitus without complications; B96.20 Unspecified Escherichia coli [E. coli] as the cause of diseases classified elsewhere; E78.00 Pure hypercholesterolemia, unspecified; Z20.822 Contact with and (suspected) exposure to COVID-19; N40.0 Benign prostatic hyperplasia without lower urinary tract symptoms; Z16.12 Extended spectrum beta lactamase (ESBL) resistance; I10 Essential (primary) hypertension; Z82.49 Family history of ischemic heart disease and other diseases of the circulatory system; Z83.3 Family history of diabetes mellitus; Z68.32 Body mass index [BMI] 32.0-32.9, adult
CPT/HCPCS: 71045; 74176; 74177; 80048; 80053; 80202; 81001; 82962; 83605; 85025; 87040; 87077; 87086; 87186; 87205; 87804; 93005; 93971; 99285; J0696; J1335; J1644; J2185; J3370; J7030; J7050; J7060; Q9967; 36415-L1; 36415-TC

== ENCOUNTER 2022-07-20 07:49 | Emergency (ER) | payer OTHER ==
[~2022-07-20] VITALS: Ht 175.3 cm; Wt 98.0 kg
[~2022-07-20 07:49] MED LIST changes: +HYDR-3831 PO
[2022-07-20] MEDS ORDERED: IBUPROFEN 600 MG TABLET PO ONE (09:45)
[2022-07-20 12:05] VITALS: BP 131/77
== END 2022-07-20 12:34 | disposition home or self-care (01) ==
LOC: EMS 08:11
DX: S23.41XA Sprain of ribs, initial encounter (principal); F41.9 Anxiety disorder, unspecified; E11.9 Type 2 diabetes mellitus without complications; E78.00 Pure hypercholesterolemia, unspecified; I10 Essential (primary) hypertension; Z87.891 Personal history of nicotine dependence; X58.XXXA Exposure to other specified factors, initial encounter; Y93.89 Activity, other specified; Y92.89 Other specified places as the place of occurrence of the external cause; Y99.8 Other external cause status
CPT/HCPCS: 71045; 82962; 99283

== ENCOUNTER 2022-12-29 08:46 | Inpatient (IN) | payer OTHER ==
[~2022-12-29] VITALS: Ht 175.3 cm; Wt 88.6 kg
[2022-12-29] MEDS ORDERED: SODIUM CHLORIDE 0.9% 1,000 ML IV ONE ×2 (09:00→10:15)
[2022-12-29] MEDS ORDERED: ONDANSETRON HCL 4 MG/2 ML VIAL IVP ONE (09:00)
[2022-12-29] MEDS ORDERED: MAG HYDROX/AL HYDROX/SIMETH 30 ML SUSP UDCUP PO ONE (09:00)
[2022-12-29] MEDS ORDERED: ACETAMINOPHEN 500 MG TABLET PO ONE (09:00)
[2022-12-29] MEDS ORDERED: FAMOTIDINE 20 MG/2 ML VIAL IVP ONE (09:00)
[2022-12-29 09:41] LABS: HEMATOCRIT 47.2 % (41-53); HEMOGLOBIN 15.8 g/dL (13.5-17.5); MEAN CORPUSCULAR HEMOGLOBIN 29.5 pg (26.0-34.0); MEAN CORPUSCULAR HGB CONC 33.4 G/dL (31.0-37.0); MEAN CORPUSCULAR VOLUME 88 fL (80-100); RED BLOOD CELL COUNT(AUTO) 5.35 MIL/uL (4.50-5.90)
[2022-12-29 09:42] LABS: PLATELET COUNT (AUTO) 170 K/uL (150-450)
[2022-12-29 09:50] LABS: ANION GAP 9 mmol/L (8-16); CARBON DIOXIDE 28 mmol/L (22-29); CHLORIDE 99 mmol/L (98-107); CREATININE 1.05 mg/dL (0.60-1.30); GLOMERULAR FILTR. RATE CALC > 60 mL/min (>60); GLUCOSE,RANDOM 225 mg/dL (70-110); POTASSIUM 3.8 mmol/L (3.5-5.1); SODIUM SERUM 136 mmol/L (136-145)
[2022-12-29 09:59] LABS: LACTIC ACID 2.2 mmol/L (0.4-2.0)
[2022-12-29 10:00] LABS: B-TYPE NATRIURETIC PEPTIDE < 5 pg/mL (0-100)
[2022-12-29 10:04] LABS: ALANINE AMINOTRANSFERASE 34 U/L (12-78); ALBUMIN 3.6 g/dL (3.4-5.0); ALKALINE PHOSPHATASE 126 U/L (46-116); ASPARTATE AMINOTRANSFERASE 22 U/L (15-37); BILIRUBIN,TOTAL 0.8 mg/dL (0.1-1.0); TOTAL PROTEIN, SERUM 7.3 g/dL (6.4-8.2)
[2022-12-29] MEDS ORDERED: SODIUM CHLORIDE 0.9% 100 ML ONE (10:10)
[2022-12-29] MEDS ORDERED: IOHEXOL 350 MG/ML 100 ML VIAL ONE (10:10)
[2022-12-29 10:14] LABS: BAND NEUTROPHILS % (MANUAL) 8 % (0-5); EOSINOPHILS % (MANUAL) 2 % (1-6); LYMPHOCYTES % (MANUAL) 4 % (22-44); MONOCYTES % (MANUAL) 5 % (2-9); SEGMENTED NEUTROPHILS % 81 % (40-70)
[2022-12-29] MEDS ORDERED: KETOROLAC TROMETHAMINE 30 MG/ML VIAL IVP ONE (10:30)
[2022-12-29 11:16] LABS: LIPASE 52 U/L (16-77)
[2022-12-29] MEDS ORDERED: CIPROFLOXACIN 400 MG/D5% WATER 200 ML IV ONE (12:30)
[2022-12-29] MEDS ORDERED: MetroNIDAZOLE 500 MG/NACL 100 ML IV ONE (12:30)
[2022-12-29 13:13] LABS: APPEARANCE,URINE CLEAR (CLEAR); BILIRUBIN,URINE NEGATIVE (NEGATIVE); GLUCOSE, URINE (UA) TRACE mg/dL (NEGATIVE); KETONES,URINE NEGATIVE (NEGATIVE); LEUKOCYTE ESTERASE ,URINE LARGE (NEGATIVE); NITRATE,URINE NEGATIVE (NEGATIVE); OCCULT BLOOD,URINE NEGATIVE (NEGATIVE); PH,URINE 5.5 (5.0-8.0); PROTEIN,URINE TRACE mg/dL (NEGATIVE); UROBILINOGEN,URINE <=1.0 mg/dL (<=1.0)
[2022-12-29] MEDS ORDERED: DEXTROSE 50%-WATER 25 GM/50 ML SYRINGE IVP PRN (13:15)
[2022-12-29 13:20] LABS: AMPHET/METH SCREEN,URINE NEGATIVE (NEGATIVE); BARBITURATE SCREEN, URINE NEGATIVE (NEGATIVE); BENZODIAZEPINES SCREEN,URINE NEGATIVE (NEGATIVE); CANNABINOID SCREEN,URINE NEGATIVE (NEGATIVE); COCAINE SCREEN,URINE NEGATIVE (NEGATIVE); METHADONE SCREEN, URINE NEGATIVE (NEGATIVE); OPIATE SCREEN,URINE NEGATIVE (NEGATIVE); PHENCYCLIDINE SCREEN,URINE NEGATIVE (NEGATIVE)
[2022-12-29 13:26] LABS: SPECIFIC GRAVITIY, URINE > 1.050 (1.003-1.030)
[2022-12-29] MEDS ORDERED: ONDANSETRON HCL 4 MG/2 ML VIAL IVP PRN (13:30)
[2022-12-29] MEDS ORDERED: MORPHINE SULFATE 2 MG/ML SYRINGE IVP PRN (13:30)
[2022-12-29] MEDS ORDERED: ACETAMINOPHEN 325 MG TABLET PO PRN (13:30)
[2022-12-29 13:40] LABS: RBC,URINE None Seen /HPF (0-2); WBC,URINE 26-50 /HPF (0-5)
[2022-12-29 13:41] LABS: BACTERIA,URINE Rare /HPF (None Seen)
[2022-12-29 13:55] VITALS: BP 121/82; PULSE 88; RESP 20; TEMP 99.5
[2022-12-29] MEDS: HEPARIN SODIUM,PORCINE 5,000 UNITS/ML VIAL SQ SCH ×2 (16:30→23:40)
[2022-12-29] MEDS: MetFORMIN HCL 500 MG TABLET PO SCH (17:31)
[2022-12-29] MEDS: INSULIN LISPRO 100 UNITS/ML SQ PRN ×2 (17:37→20:44)
[2022-12-29 19:33] VITALS: BP 115/68; PULSE 73; RESP 20; TEMP 98.2
[2022-12-29] MEDS: DOCUSATE SODIUM 100 MG CAPSULE PO SCH (20:43)
[2022-12-29] MEDS: GABAPENTIN 400 MG CAPSULE PO SCH (21:28)
[2022-12-29] MEDS: FLUTICASONE PROPIONATE 50 MCG/SPRAY 16 GM NASAL SPRAY NASAL SCH (21:28)
[2022-12-29] MEDS: MetroNIDAZOLE 500 MG/NACL 100 ML IV SCH (21:28)
[2022-12-29] MEDS: CIPROFLOXACIN 400 MG/D5% WATER 200 ML IV SCH (23:40)
[2022-12-30 00:26] LABS: GLUCOMETER DEV NAME(LOC) 6N.2B
[2022-12-30 00:26] LABS: GLUCOMETER DEV NAME(LOC) 6N.2B
[2022-12-30 04:52] VITALS: BP 112/77; PULSE 71; RESP 20; TEMP 97.8
[2022-12-30] MEDS: MetroNIDAZOLE 500 MG/NACL 100 ML IV SCH ×3 (06:12→21:05)
[2022-12-30 07:26] VITALS: BP 108/63; PULSE 69; RESP 20; TEMP 98.6
[2022-12-30] MEDS: MetFORMIN HCL 500 MG TABLET PO SCH ×2 (08:05→17:52)
[2022-12-30] MEDS: LISINOPRIL 20 MG TABLET PO SCH (08:06)
[2022-12-30] MEDS: GABAPENTIN 400 MG CAPSULE PO SCH ×2 (08:06→21:04)
[2022-12-30] MEDS: DOCUSATE SODIUM 100 MG CAPSULE PO SCH ×2 (08:08→21:04)
[2022-12-30] MEDS: PANTOPRAZOLE SODIUM 40 MG/VIAL IVP SCH (08:08)
[2022-12-30] MEDS: HEPARIN SODIUM,PORCINE 5,000 UNITS/ML VIAL SQ SCH ×2 (08:09→16:26)
[2022-12-30] MEDS: FLUTICASONE PROPIONATE 50 MCG/SPRAY 16 GM NASAL SPRAY NASAL SCH ×2 (08:09→21:04)
[2022-12-30 08:11] LABS: GLUCOMETER DEV NAME(LOC) 6S.2
[2022-12-30 11:17] LABS: BASOPHILS % (AUTO) 0.4 % (0.0-2.0); EOSINOPHILS % (AUTO) 0.8 % (1.0-6.0); HEMATOCRIT 45.2 % (41-53); HEMOGLOBIN 14.9 g/dL (13.5-17.5); LYMPHOCYTES # (AUTO) 1.6 K/uL (1.0-4.8); LYMPHOCYTES % (AUTO) 10.7 % (22.0-44.0); MEAN CORPUSCULAR VOLUME 88 fL (80-100); NEUTROPHILS # (AUTO) 11.9 K/uL (1.8-7.7); NEUTROPHILS % (AUTO) 81.1 % (40.0-70.0); PLATELET COUNT (AUTO) 165 K/uL (150-450); RED BLOOD CELL COUNT(AUTO) 5.14 MIL/uL (4.50-5.90)
[2022-12-30] MEDS: CIPROFLOXACIN 400 MG/D5% WATER 200 ML IV SCH (13:07)
[2022-12-30 15:36] VITALS: BP 107/72; PULSE 62; RESP 20; TEMP 97.7
[2022-12-30] MEDS: INSULIN LISPRO 100 UNITS/ML SQ PRN ×2 (17:27→20:39)
[2022-12-30 19:38] VITALS: BP 109/68; PULSE 68; RESP 20; TEMP 98.2
[2022-12-30 20:35] LABS: GLUCOMETER DEV NAME(LOC) 6N.2B
[2022-12-31] MEDS: CIPROFLOXACIN 400 MG/D5% WATER 200 ML IV SCH ×2 (00:11→11:53)
[2022-12-31] MEDS: HEPARIN SODIUM,PORCINE 5,000 UNITS/ML VIAL SQ SCH ×2 (00:12→08:37)
[2022-12-31 04:38] VITALS: BP 120/73; PULSE 58; RESP 18; TEMP 97.5
[2022-12-31 06:07] LABS: GLUCOMETER DEV NAME(LOC) 6S.2
[2022-12-31] MEDS: MetroNIDAZOLE 500 MG/NACL 100 ML IV SCH (06:13)
[2022-12-31 07:26] LABS: GLUCOMETER DEV NAME(LOC) 6S.2
[2022-12-31 08:00] VITALS: BP 118/82; PULSE 54; RESP 19; TEMP 97.7
[2022-12-31] MEDS: PANTOPRAZOLE SODIUM 40 MG/VIAL IVP SCH (08:36)
[2022-12-31] MEDS: FLUTICASONE PROPIONATE 50 MCG/SPRAY 16 GM NASAL SPRAY NASAL SCH (08:36)
[2022-12-31] MEDS: GABAPENTIN 400 MG CAPSULE PO SCH (08:36)
[2022-12-31] MEDS: DOCUSATE SODIUM 100 MG CAPSULE PO SCH (08:37)
[2022-12-31] MEDS: LISINOPRIL 20 MG TABLET PO SCH (08:37)
[2022-12-31] MEDS: MetFORMIN HCL 500 MG TABLET PO SCH (08:37)
[2022-12-31] MEDS ORDERED: CIPR500T10 PO (10:40)
[2022-12-31] MEDS ORDERED: METR500 PO (10:41)
[2022-12-31 14:46] LABS: GLUCOMETER DEV NAME(LOC) 6N.2B
== END 2022-12-31 12:39 | disposition home or self-care (01) | DRG 249 ==
LOC: EMS 08:52 → 6S 13:32
PROVIDERS: ADMIT Internal Medicine; ATTEND Internal Medicine
DX: K52.89 Other specified noninfective gastroenteritis and colitis (principal); E87.20 Acidosis, unspecified; R65.10 Systemic inflammatory response syndrome (SIRS) of non-infectious origin without acute organ dysfunction; N12 Tubulo-interstitial nephritis, not specified as acute or chronic; N39.0 Urinary tract infection, site not specified; E78.00 Pure hypercholesterolemia, unspecified; F41.9 Anxiety disorder, unspecified; I10 Essential (primary) hypertension; E11.9 Type 2 diabetes mellitus without complications; Z79.899 Other long term (current) drug therapy; Z82.49 Family history of ischemic heart disease and other diseases of the circulatory system; Z83.3 Family history of diabetes mellitus; Z87.891 Personal history of nicotine dependence; Z87.440 Personal history of urinary (tract) infections
CPT/HCPCS: 71045; 74177; 80053; 80307; 81001; 82962; 83605; 83690; 83880; 84484; 85025; 87040; 87086; 87186; 93005; 99285; C9113; G0378; G0480; J0744; J1644; J1885; J2405; J3490; J7030; J7050; Q9967; 36415-L1; 36415-TC

== ENCOUNTER 2023-03-14 02:19 | Emergency (ER) | payer OTHER ==
[~2023-03-14] VITALS: Ht 175.3 cm; Wt 103.0 kg
[~2023-03-14 02:19] MED LIST changes: +CIPR500T10 PO; +METR500 PO; -SULF-261 PO; -TAMS-13 PO; +TAMS0.4C34 PO
[2023-03-14] MEDS ORDERED: MAG HYDROX/AL HYDROX/SIMETH 30 ML SUSP UDCUP PO ONE (02:45)
[2023-03-14] MEDS ORDERED: MORPHINE SULFATE 2 MG/ML SYRINGE IVP ONE (02:45)
[2023-03-14] MEDS ORDERED: SODIUM CHLORIDE 0.9% 1,000 ML IV ONE ×2 (02:45→11:00)
[2023-03-14] MEDS ORDERED: FAMOTIDINE 20 MG/2 ML VIAL IVP ONE (02:45)
[2023-03-14] MEDS ORDERED: ONDANSETRON HCL 4 MG/2 ML VIAL IVP ONE (02:45)
[2023-03-14 03:01] VITALS: TEMP 98.6
[2023-03-14 03:05] LABS: APPEARANCE,URINE CLEAR (CLEAR); BILIRUBIN,URINE NEGATIVE (NEGATIVE); COLOR,URINE DARK ORANGE (YELLOW); GLUCOSE, URINE (UA) NEGATIVE (NEGATIVE); KETONES,URINE NEGATIVE (NEGATIVE); LEUKOCYTE ESTERASE ,URINE MODERATE (NEGATIVE); NITRATE,URINE NEGATIVE (NEGATIVE); OCCULT BLOOD,URINE TRACE (NEGATIVE); PH,URINE 5.5 (5.0-8.0); PROTEIN,URINE 30-70 mg/dL (NEGATIVE); SPECIFIC GRAVITIY, URINE 1.026 (1.003-1.030); UROBILINOGEN,URINE <=1.0 mg/dL (<=1.0)
[2023-03-14 03:25] LABS: RBC,URINE 0-2 /HPF (0-2)
[2023-03-14 03:26] LABS: BACTERIA,URINE Rare /HPF (None Seen); SQUAMOUS EPITHELIAL CELL,UR Few /LPF (None Seen)
[2023-03-14 03:48] LABS: BASOPHILS % (AUTO) 0.2 % (0.0-2.0); EOSINOPHILS % (AUTO) 0.9 % (1.0-6.0); HEMATOCRIT 41.4 % (41-53); HEMOGLOBIN 13.9 g/dL (13.5-17.5); LYMPHOCYTES # (AUTO) 1.3 K/uL (1.0-4.8); LYMPHOCYTES % (AUTO) 11.2 % (22.0-44.0); MEAN CORPUSCULAR HEMOGLOBIN 29.7 pg (26.0-34.0); MEAN CORPUSCULAR HGB CONC 33.7 G/dL (31.0-37.0); MEAN CORPUSCULAR VOLUME 88 fL (80-100); MONOCYTES # (AUTO) 1.1 K/uL (0.1-1.0); MONOCYTES % (AUTO) 9.6 % (2.0-9.0); NEUTROPHILS # (AUTO) 8.8 K/uL (1.8-7.7); NEUTROPHILS % (AUTO) 78.1 % (40.0-70.0); PLATELET COUNT (AUTO) 174 K/uL (150-450); RED CELL DISTRIBUTION WIDTH 13.7 % (11.5-14.5); WHITE BLOOD COUNT (AUTO) 11.2 K/uL (4.5-11.0)
[2023-03-14 03:55] LABS: ANION GAP 9 mmol/L (8-16); CALCIUM, TOTAL 8.3 mg/dL (8.8-10.5); CARBON DIOXIDE 26 mmol/L (22-29); CHLORIDE 101 mmol/L (98-107); CREATININE 0.96 mg/dL (0.60-1.30); GLOMERULAR FILTR. RATE CALC > 60 mL/min (>60); GLUCOSE,RANDOM 205 mg/dL (70-110); POTASSIUM 3.9 mmol/L (3.5-5.1); SODIUM SERUM 136 mmol/L (136-145); UREA NITROGEN, BLOOD 15 mg/dL (7-18)
[2023-03-14 04:00] LABS: ALANINE AMINOTRANSFERASE 23 U/L (12-78); ALBUMIN 2.7 g/dL (3.4-5.0); ALKALINE PHOSPHATASE 97 U/L (46-116); ASPARTATE AMINOTRANSFERASE 9 U/L (15-37); LIPASE 35 U/L (16-77); TOTAL PROTEIN, SERUM 6.4 g/dL (6.4-8.2)
[2023-03-14 04:02] LABS: TROPONIN I-HIGH SENSITIVITY 5 ng/L (<76)
[2023-03-14 04:04] LABS: LACTIC ACID 1.5 mmol/L (0.4-2.0)
[2023-03-14] MEDS ORDERED: IOHEXOL 350 MG/ML 100 ML VIAL ONE (04:16)
[2023-03-14] MEDS ORDERED: SODIUM CHLORIDE 0.9% 100 ML ONE (04:16)
[2023-03-14] MEDS ORDERED: CEPH-558 PO (05:52)
[2023-03-14] MEDS ORDERED: CEPHALEXIN MONOHYDRATE 500 MG CAPSULE PO ONE (06:00)
[2023-03-14] MEDS ORDERED: SULFAMETHOX/TRIMETH DS 800-160 MG/TABLET PO ONE (06:00)
[2023-03-14] MEDS ORDERED: SULF-261 PO ×2 (06:01→11:21)
[2023-03-14 07:25] LABS: GLUCOMETER DEV NAME(LOC) ERT.5; GLUCOSE,POINT OF CARE 216 MG/DL (70-110)
[2023-03-14] MEDS ORDERED: INSULIN LISPRO 100 UNITS/ML SQ PRN (11:00)
[2023-03-14] MEDS ORDERED: DEXTROSE 50%-WATER 25 GM/50 ML SYRINGE IVP PRN (11:00)
[2023-03-14] MEDS ORDERED: ACETAMINOPHEN 325 MG TABLET PO ONE (11:15)
[2023-03-14 11:30] VITALS: BP 125/81; PULSE 80; RESP 14
== END 2023-03-14 11:48 | disposition home or self-care (01) ==
LOC: EMS 02:22
DX: N39.0 Urinary tract infection, site not specified (principal); F41.9 Anxiety disorder, unspecified; J44.9 Chronic obstructive pulmonary disease, unspecified; E11.9 Type 2 diabetes mellitus without complications; E78.00 Pure hypercholesterolemia, unspecified; I10 Essential (primary) hypertension; N40.0 Benign prostatic hyperplasia without lower urinary tract symptoms; Z87.891 Personal history of nicotine dependence; Z98.890 Other specified postprocedural states
CPT/HCPCS: 99285; 74177; 96374; 96361; 96375; 80053; 81001; 82962; 83605; 83690; 84484; 85025; 36415; 87086; 87186; 93005; J3490; J2270; J2405; Q9967; J7030; J7050

== ENCOUNTER 2024-09-21 18:49 | Emergency (ER) | payer OTHER ==
[~2024-09-21] VITALS: Ht 175.3 cm; Wt 100.0 kg
[~2024-09-21 18:49] MED LIST changes: +BACTDSB PO; +CHOL500043 PO; -CIPR500T10 PO; +DULA1.5P SQ; -FLUT16H NASAL; -GABA-1201 PO; +GABA-534 PO; -GLIM2 PO; -HYDR-3831 PO; -INSU100I26 SQ; -METR500 PO; -SEMA14TA2 PO; -TAMS0.4C34 PO; +TAMS0.4C94 PO
[2024-09-21 18:50] VITALS: TEMP 98.1
[2024-09-21] MEDS: LIDOCAINE 1% 10 ML VIAL ID ONE (22:32)
[2024-09-22 01:00] VITALS: BP 125/85; PULSE 72; RESP 18; O2SAT 96
== END 2024-09-22 01:34 | disposition home or self-care (01) ==
LOC: EMS 18:49
DX: L03.011 Cellulitis of right finger (principal); J44.9 Chronic obstructive pulmonary disease, unspecified; E11.9 Type 2 diabetes mellitus without complications; I10 Essential (primary) hypertension; E78.00 Pure hypercholesterolemia, unspecified; Z79.51 Long term (current) use of inhaled steroids; Z87.440 Personal history of urinary (tract) infections; Z79.899 Other long term (current) drug therapy
CPT/HCPCS: 10060; 99282; 82962; J3490

== ENCOUNTER 2024-10-25 19:41 | Emergency (ER) | payer OTHER ==
[~2024-10-25] VITALS: Ht 175.3 cm; Wt 100.9 kg
[2024-10-25 19:54] VITALS: TEMP 99.7
[2024-10-25 20:16] LABS: GLUCOMETER DEV NAME(LOC) ER.7; GLUCOSE,POINT OF CARE 329 MG/DL (70-110)
[2024-10-25 20:42] LABS: BASOPHILS % (AUTO) 0.5 % (0.0-2.0); EOSINOPHILS % (AUTO) 2.1 % (1.0-6.0); HEMATOCRIT 45.6 % (41-53); HEMOGLOBIN 15.2 g/dL (13.5-17.5); LYMPHOCYTES # (AUTO) 1.1 K/uL (1.0-4.8); MEAN CORPUSCULAR HEMOGLOBIN 28.9 pg (26.0-34.0); MEAN CORPUSCULAR HGB CONC 33.3 G/dL (31.0-37.0); MEAN CORPUSCULAR VOLUME 87 fL (80-100); MONOCYTES # (AUTO) 0.7 K/uL (0.1-1.0); NEUTROPHILS # (AUTO) 9.1 K/uL (1.8-7.7); NEUTROPHILS % (AUTO) 81.4 % (40.0-70.0); PLATELET COUNT (AUTO) 178 K/uL (150-450); RED BLOOD CELL COUNT(AUTO) 5.25 MIL/uL (4.50-5.90); RED CELL DISTRIBUTION WIDTH 13.6 % (11.5-14.5); WHITE BLOOD COUNT (AUTO) 11.1 K/uL (4.5-11.0)
[2024-10-25 20:48] LABS: ANION GAP 6 mmol/L (8-16); CARBON DIOXIDE 29 mmol/L (22-29); CHLORIDE 101 mmol/L (98-107); CREATININE 1.06 mg/dL (0.60-1.30); GLOMERULAR FILTR. RATE CALC > 60 mL/min (>60); GLUCOSE,RANDOM 337 mg/dL (70-110); POTASSIUM 4.7 mmol/L (3.5-5.1); SODIUM SERUM 136 mmol/L (136-145); UREA NITROGEN, BLOOD 16 mg/dL (7-18)
[2024-10-25 20:57] LABS: TROPONIN I-HIGH SENSITIVITY 9 ng/L (<76)
[2024-10-25 21:03] LABS: COVID AG,FIA SOURCE NASAL SWAB
[2024-10-25 21:13] LABS: APPEARANCE,URINE HAZY (CLEAR); BILIRUBIN,URINE NEGATIVE (NEGATIVE); COLOR,URINE LIGHT YELLOW (YELLOW); GLUCOSE, URINE (UA) >=1000 mg/dL (NEGATIVE); KETONES,URINE TRACE mg/dL (NEGATIVE); LEUKOCYTE ESTERASE ,URINE LARGE (NEGATIVE); NITRATE,URINE NEGATIVE (NEGATIVE); OCCULT BLOOD,URINE NEGATIVE (NEGATIVE); PROTEIN,URINE NEGATIVE (NEGATIVE); SPECIFIC GRAVITIY, URINE 1.023 (1.003-1.030)
[2024-10-25 21:30] LABS: SARS-COV2 (COVID) ANTIGEN,FIA Negative (Negative)
[2024-10-25 22:01] LABS: INFLUENZA TYPE A NEGATIVE FOR TYPE A (NEGATIVE); INFLUENZA TYPE B NEGATIVE FOR TYPE B (NEGATIVE)
[2024-10-25 22:18] LABS: BACTERIA,URINE Few /HPF (None Seen); RBC,URINE 0-2 /HPF (0-2); SQUAMOUS EPITHELIAL CELL,UR Rare /LPF (None Seen); WBC,URINE 26-50 /HPF (0-5)
[2024-10-25] MEDS: SULFAMETHOX/TRIMETH DS 800-160 MG/TABLET PO ONE (23:16)
[2024-10-25] MEDS ORDERED: BACTDSB PO (23:18)
[2024-10-25 23:27] VITALS: BP 114/78; PULSE 95; RESP 18; O2SAT 95
== END 2024-10-25 23:45 | disposition home or self-care (01) ==
LOC: EMS 19:41
DX: N39.0 Urinary tract infection, site not specified (principal); F41.9 Anxiety disorder, unspecified; K59.00 Constipation, unspecified; J44.9 Chronic obstructive pulmonary disease, unspecified; E11.8 Type 2 diabetes mellitus with unspecified complications; E78.00 Pure hypercholesterolemia, unspecified; I10 Essential (primary) hypertension; N40.0 Benign prostatic hyperplasia without lower urinary tract symptoms; Z87.440 Personal history of urinary (tract) infections; Z79.51 Long term (current) use of inhaled steroids; Z20.822 Contact with and (suspected) exposure to COVID-19; Z79.899 Other long term (current) drug therapy
CPT/HCPCS: 71045; 80048; 81001; 82962; 84484; 85025; 87077; 87086; 87186; 87804; 93005; 99285; 36415-L1; 36415-TC

== ENCOUNTER 2025-03-06 21:49 | Inpatient (IN) | payer OTHER ==
[~2025-03-06] VITALS: Ht 172.7 cm; Wt 102.9 kg
[2025-03-06 22:02] LABS: COVID AG,FIA SOURCE NASAL SWAB
[2025-03-06] MEDS ORDERED: SODIUM CHLORIDE 0.9% 3,000 ML IV ONE (22:15)
[2025-03-06] MEDS ORDERED: 0.9% SODIUM CHLORIDE 10 ML SYRINGE IVP PRN (22:15)
[2025-03-06] MEDS ORDERED: SODIUM CHLORIDE 0.9% 2,700 ML IV ONE (22:15)
[2025-03-06 22:23] LABS: INFLUENZA TYPE A NEGATIVE FOR TYPE A (NEGATIVE); INFLUENZA TYPE B NEGATIVE FOR TYPE B (NEGATIVE); SARS-COV2 (COVID) ANTIGEN,FIA Negative (Negative)
[2025-03-06] MEDS: SODIUM CHLORIDE 0.9% 2,500 ML IV ONE (22:30)
[2025-03-06] MEDS: CefTRIAXone 1 GM/DEXTROSE 50 ML IV ONE (22:40)
[2025-03-06 22:46] LABS: PLATELET COUNT (AUTO) 162 K/uL (150-450); RED BLOOD CELL COUNT(AUTO) 5.12 MIL/uL (4.50-5.90); RED CELL DISTRIBUTION WIDTH 14.4 % (11.5-14.5); WHITE BLOOD COUNT (AUTO) 13.1 K/uL (4.5-11.0)
[2025-03-06 22:48] LABS: CALCIUM, TOTAL 8.6 mg/dL (8.8-10.5); CREATININE 0.89 mg/dL (0.60-1.30); GLOMERULAR FILTR. RATE CALC > 60 mL/min (>60); GLUCOSE,RANDOM 157 mg/dL (70-110); SODIUM SERUM 137 mmol/L (136-145); UREA NITROGEN, BLOOD 14 mg/dL (7-18)
[2025-03-06] MEDS: ONDANSETRON HCL 4 MG/2 ML VIAL IVP ONE (22:49)
[2025-03-06] MEDS ORDERED: SODIUM CHLORIDE 0.9% 100 ML ONE (22:53)
[2025-03-06] MEDS ORDERED: IOHEXOL 300 MG/ML 100 ML VIAL ONE (22:53)
[2025-03-06 22:57] LABS: LACTIC ACID 1.9 mmol/L (0.4-2.0); TROPONIN I-HIGH SENSITIVITY 9 ng/L (<76)
[2025-03-06] MEDS: PIPERACILLIN/TAZO 3.375 GM/D5W 50 ML IV SCH (23:08)
[2025-03-06] MEDS: ACETAMINOPHEN 1000 MG/ISO-OSM 100 ML IV ONE (23:08)
[2025-03-06] MEDS: HEPARIN SODIUM,PORCINE 5,000 UNITS/ML VIAL SQ SCH (23:13)
[2025-03-07 01:10] LABS: APPEARANCE,URINE CLEAR (CLEAR); GLUCOSE, URINE (UA) NEGATIVE (NEGATIVE); LEUKOCYTE ESTERASE ,URINE LARGE (NEGATIVE); OCCULT BLOOD,URINE TRACE (NEGATIVE)
[2025-03-07 01:13] LABS: NITRATE,URINE NEGATIVE (NEGATIVE); SPECIFIC GRAVITIY, URINE 1.030 (1.003-1.030)
[2025-03-07 01:49] LABS: SQUAMOUS EPITHELIAL CELL,UR Few /LPF (None Seen)
[2025-03-07] MEDS: ACETAMINOPHEN 325 MG TABLET PO PRN ×2 (04:33→14:33)
[2025-03-07] MEDS: ONDANSETRON HCL 4 MG/2 ML VIAL IVP PRN (04:44)
[2025-03-07] MEDS: MECLIZINE HCL 25 MG TABLET PO ONE (04:44)
[2025-03-07 06:40] LABS: PLATELET COUNT (AUTO) 154 K/uL (150-450); RED BLOOD CELL COUNT(AUTO) 4.87 MIL/uL (4.50-5.90); RED CELL DISTRIBUTION WIDTH 14.1 % (11.5-14.5); WHITE BLOOD COUNT (AUTO) 14.7 K/uL (4.5-11.0)
[2025-03-07 06:50] LABS: CALCIUM, TOTAL 7.9 mg/dL (8.8-10.5); CREATININE 0.88 mg/dL (0.60-1.30); GLOMERULAR FILTR. RATE CALC > 60 mL/min (>60); GLUCOSE,RANDOM 184 mg/dL (70-110); SODIUM SERUM 138 mmol/L (136-145); UREA NITROGEN, BLOOD 10 mg/dL (7-18)
[2025-03-07 07:20] LABS: GLUCOMETER DEV NAME(LOC) ER.7; GLUCOSE,POINT OF CARE 177 MG/DL (70-110)
[2025-03-07] MEDS: DOCUSATE SODIUM 100 MG CAPSULE PO SCH (08:19)
[2025-03-07] MEDS: MORPHINE SULFATE 4 MG/ML SYRINGE IVP PRN (10:02)
[2025-03-07] MEDS: SODIUM CHLORIDE 0.9% 1,000 ML IV SCH (10:15)
[2025-03-07 12:55] LABS: GLUCOMETER DEV NAME(LOC) ER.7; GLUCOSE,POINT OF CARE 153 MG/DL (70-110)
[2025-03-07 13:30] VITALS: BP 151/86; PULSE 84; RESP 20; TEMP 100.9; O2SAT 97
[2025-03-07] MEDS ORDERED: BISACODYL 10 MG RECTAL RECTAL SUPPOSITORY PR PRN (13:45)
[2025-03-07] MEDS ORDERED: ZOLPIDEM TARTRATE 5 MG TABLET PO PRN (13:45)
[2025-03-07] MEDS ORDERED: MAGNESIUM HYDROXIDE SUSPENSION 30 ML UDCUP PO PRN (13:45)
[2025-03-07] MEDS ORDERED: ALBUTEROL SULFATE 2.5 MG/0.5 ML NEB SOLUTION NEB PRN (13:45)
[2025-03-07] MEDS ORDERED: IPRATROPIUM BROMIDE 0.5 MG/2.5 ML NEB SOLUTION NEB PRN (13:45)
[2025-03-07 14:23] VITALS: BP 130/90; PULSE 64; RESP 18; TEMP 98.2; O2SAT 96
[2025-03-07] MEDS ORDERED: MORPHINE SULFATE 4 MG/ML SYRINGE IVP PRN (15:00)
[2025-03-07] MEDS ORDERED: INFLUENZA VIRUS VACCINE TVS (6MO+) 2025-26/PF 45 MCG/0.5 ML SYRINGE IM. ONE (15:45)
[2025-03-07 15:58] VITALS: BP 137/88; PULSE 97; RESP 18; TEMP 99.1; O2SAT 97
[2025-03-07] MEDS ORDERED: DEXTROSE 50%-WATER 25 GM/50 ML SYRINGE IVP PRN (17:30)
[2025-03-07] MEDS: INSULIN LISPRO 100 UNITS/ML SQ PRN (17:53)
[2025-03-07 17:55] VITALS: TEMP 98
[2025-03-07] MEDS: HYDROCODONE/ACETAMINOPHEN 5-325 MG TABLET PO PRN (17:55)
[2025-03-07 19:32] VITALS: BP 138/91; PULSE 86; RESP 19; TEMP 98.8; O2SAT 97
[2025-03-07 20:56] LABS: GLUCOMETER DEV NAME(LOC) 5S.2D; GLUCOSE,POINT OF CARE 217 MG/DL (70-110)
[2025-03-07 20:56] LABS: GLUCOMETER DEV NAME(LOC) 5S.2D; GLUCOSE,POINT OF CARE 189 MG/DL (70-110)
[2025-03-08 00:29] VITALS: BP 141/91; PULSE 68; RESP 18; TEMP 98.6; O2SAT 98
[2025-03-08 03:40] VITALS: BP 138/93; PULSE 66; RESP 19; TEMP 98.8; O2SAT 97
[2025-03-08 06:45] LABS: GLUCOMETER DEV NAME(LOC) 5N.2C; GLUCOSE,POINT OF CARE 171 MG/DL (70-110)
[2025-03-08 06:51] LABS: PLATELET COUNT (AUTO) 147 K/uL (150-450); RED BLOOD CELL COUNT(AUTO) 4.95 MIL/uL (4.50-5.90); RED CELL DISTRIBUTION WIDTH 14.2 % (11.5-14.5); WHITE BLOOD COUNT (AUTO) 10.5 K/uL (4.5-11.0)
[2025-03-08 07:08] LABS: CALCIUM, TOTAL 8.2 mg/dL (8.8-10.5); CREATININE 0.65 mg/dL (0.60-1.30); GLOMERULAR FILTR. RATE CALC > 60 mL/min (>60); GLUCOSE,RANDOM 169 mg/dL (70-110); SODIUM SERUM 135 mmol/L (136-145); UREA NITROGEN, BLOOD 10 mg/dL (7-18)
[2025-03-08 07:38] VITALS: BP 132/87; PULSE 63; RESP 18; TEMP 98.6; O2SAT 97
[2025-03-08] MEDS: PANTOPRAZOLE SODIUM 40 MG DR TABLET PO SCH (08:47)
[2025-03-08 10:59] VITALS: BP 135/95; PULSE 71; RESP 18; TEMP 98.2; O2SAT 98
[2025-03-08] MEDS ORDERED: MECLIZINE HCL 12.5 MG TABLET PO PRN (11:00)
[2025-03-08] MEDS: GABAPENTIN 400 MG CAPSULE PO SCH (11:42)
[2025-03-08 13:10] LABS: GLUCOMETER DEV NAME(LOC) 5N.2C; GLUCOSE,POINT OF CARE 203 MG/DL (70-110)
[2025-03-08 15:20] VITALS: BP 130/82; PULSE 65; RESP 18; TEMP 98.4; O2SAT 98
[2025-03-08 19:11] LABS: GLUCOMETER DEV NAME(LOC) 5S.2D; GLUCOSE,POINT OF CARE 227 MG/DL (70-110)
[2025-03-08 19:49] VITALS: BP 129/83; PULSE 64; RESP 19; TEMP 97.9; O2SAT 97
[2025-03-08] MEDS: TAMSULOSIN HCL 0.4 MG CAPSULE PO SCH (20:19)
[2025-03-08 23:06] LABS: GLUCOMETER DEV NAME(LOC) 5N.2C; GLUCOSE,POINT OF CARE 210 MG/DL (70-110)
[2025-03-09 00:27] VITALS: BP 132/87; PULSE 54; RESP 19; TEMP 97.9; O2SAT 95
[2025-03-09 04:19] VITALS: BP 121/81; PULSE 53; RESP 17; TEMP 98.1; O2SAT 97
[2025-03-09 06:18] LABS: PLATELET COUNT (AUTO) 158 K/uL (150-450); RED BLOOD CELL COUNT(AUTO) 4.66 MIL/uL (4.50-5.90); RED CELL DISTRIBUTION WIDTH 14.2 % (11.5-14.5); WHITE BLOOD COUNT (AUTO) 7.1 K/uL (4.5-11.0)
[2025-03-09 06:30] LABS: CALCIUM, TOTAL 8.3 mg/dL (8.8-10.5); CREATININE 0.66 mg/dL (0.60-1.30); GLOMERULAR FILTR. RATE CALC > 60 mL/min (>60); GLUCOSE,RANDOM 171 mg/dL (70-110); SODIUM SERUM 138 mmol/L (136-145); UREA NITROGEN, BLOOD 12 mg/dL (7-18)
[2025-03-09 06:30] LABS: GLUCOMETER DEV NAME(LOC) 5S.2D; GLUCOSE,POINT OF CARE 172 MG/DL (70-110)
[2025-03-09 08:00] VITALS: BP 122/92; PULSE 58; RESP 18; TEMP 98.4; O2SAT 98
[2025-03-09 11:10] VITALS: BP 133/80; PULSE 58; RESP 18; TEMP 97.7; O2SAT 98
[2025-03-09 15:57] VITALS: BP 126/87; PULSE 55; RESP 18; TEMP 98.1; O2SAT 97
[2025-03-09 18:26] LABS: GLUCOMETER DEV NAME(LOC) 5S.2D; GLUCOSE,POINT OF CARE 194 MG/DL (70-110)
[2025-03-09 18:26] LABS: GLUCOMETER DEV NAME(LOC) 5S.2D; GLUCOSE,POINT OF CARE 187 MG/DL (70-110)
[2025-03-09 20:32] VITALS: BP 135/82; PULSE 56; RESP 18; TEMP 98.2; O2SAT 97
[2025-03-10 00:01] VITALS: BP 144/91; PULSE 56; RESP 18; TEMP 98.8; O2SAT 97
[2025-03-10 02:01] LABS: GLUCOMETER DEV NAME(LOC) 5N.2C; GLUCOSE,POINT OF CARE 263 MG/DL (70-110)
[2025-03-10 05:03] VITALS: BP 111/79; PULSE 57; RESP 18; TEMP 98.2; O2SAT 96
[2025-03-10 06:29] LABS: PLATELET COUNT (AUTO) 179 K/uL (150-450); RED BLOOD CELL COUNT(AUTO) 4.89 MIL/uL (4.50-5.90); RED CELL DISTRIBUTION WIDTH 14.2 % (11.5-14.5); WHITE BLOOD COUNT (AUTO) 6.6 K/uL (4.5-11.0)
[2025-03-10 06:42] LABS: CALCIUM, TOTAL 8.4 mg/dL (8.8-10.5); CREATININE 0.61 mg/dL (0.60-1.30); GLOMERULAR FILTR. RATE CALC > 60 mL/min (>60); GLUCOSE,RANDOM 152 mg/dL (70-110); SODIUM SERUM 136 mmol/L (136-145); UREA NITROGEN, BLOOD 10 mg/dL (7-18)
[2025-03-10 08:00] VITALS: BP 122/88; PULSE 62; RESP 16; TEMP 98.1; O2SAT 99
[2025-03-10 08:18] VITALS: BP 134/80; PULSE 59; RESP 18; TEMP 98.1; O2SAT 98
[2025-03-10 11:47] VITALS: BP 123/96; PULSE 60; RESP 18; TEMP 98.1; O2SAT 99
[2025-03-10 12:00] VITALS: BP 120/85; PULSE 58; RESP 18; TEMP 97.7; O2SAT 99
[2025-03-10] MEDS ORDERED: SULF-261 PO (13:49)
[2025-03-10 18:21] LABS: GLUCOMETER DEV NAME(LOC) 5S.2D; GLUCOSE,POINT OF CARE 155 MG/DL (70-110)
[2025-03-10 18:21] LABS: GLUCOMETER DEV NAME(LOC) 5S.2D; GLUCOSE,POINT OF CARE 188 MG/DL (70-110)
== END 2025-03-10 15:50 | disposition home or self-care (01) | DRG 720 ==
LOC: EMS 21:49 → EDH 22:48 → 5S 03-07 13:30
PROVIDERS: ADMIT Internal Medicine; ATTEND Internal Medicine
DX: A41.51 Sepsis due to Escherichia coli [E. coli] (principal); G93.41 Metabolic encephalopathy; B96.20 Unspecified Escherichia coli [E. coli] as the cause of diseases classified elsewhere; E11.9 Type 2 diabetes mellitus without complications; E78.00 Pure hypercholesterolemia, unspecified; F41.9 Anxiety disorder, unspecified; I10 Essential (primary) hypertension; N10 Acute pyelonephritis; R42 Dizziness and giddiness; J44.9 Chronic obstructive pulmonary disease, unspecified; K59.00 Constipation, unspecified; N40.0 Benign prostatic hyperplasia without lower urinary tract symptoms; Z82.49 Family history of ischemic heart disease and other diseases of the circulatory system; Z83.3 Family history of diabetes mellitus; Z79.899 Other long term (current) drug therapy
CPT/HCPCS: 71045; 74177; 80048; 81001; 82962; 83605; 83735; 83880; 84145; 84484; 85025; 85379; 85384; 85610; 87040; 87077; 87086; 87185; 87186; 87205; 87804; 93005; 99291; G0378; J0131; J0696; J1644; J2270; J2405; J2543; J7030; J7050; Q9967; 36415-L1; 36415-TC

== ENCOUNTER 2025-04-22 00:31 | Emergency (ER) | payer OTHER ==
[~2025-04-22] VITALS: Ht 175.3 cm; Wt 98.6 kg
[~2025-04-22 00:31] MED LIST changes: -BACTDSB PO; -DULA1.5P SQ; -FLUT12AE7 IH; +SULF1TAB94 PO
[2025-04-22 00:40] VITALS: TEMP 97.7
[2025-04-22] MEDS: DIAZEPAM 5 MG/ML 2 ML SYRINGE IVP ONE (00:52)
[2025-04-22 01:16] LABS: PLATELET COUNT (AUTO) 200 K/uL (150-450); RED BLOOD CELL COUNT(AUTO) 5.06 MIL/uL (4.50-5.90); RED CELL DISTRIBUTION WIDTH 14.1 % (11.5-14.5); WHITE BLOOD COUNT (AUTO) 7.7 K/uL (4.5-11.0)
[2025-04-22 01:33] LABS: CALCIUM, TOTAL 8.6 mg/dL (8.8-10.5); CREATININE 1.03 mg/dL (0.60-1.30); GLOMERULAR FILTR. RATE CALC > 60 mL/min (>60); GLUCOSE,RANDOM 217 mg/dL (70-110); SODIUM SERUM 141 mmol/L (136-145); UREA NITROGEN, BLOOD 15 mg/dL (7-18)
[2025-04-22 01:40] LABS: ASPARTATE AMINOTRANSFERASE 23.0 U/L (15-37); TOTAL PROTEIN, SERUM 7.2 g/dL (6.4-8.2)
[2025-04-22 01:44] LABS: TROPONIN I-HIGH SENSITIVITY 11 ng/L (<76)
[2025-04-22 02:46] VITALS: BP 123/80; PULSE 83; RESP 16; O2SAT 93
[2025-04-22] MEDS ORDERED: HYDR-3831 PO (03:54)
== END 2025-04-22 04:03 | disposition home or self-care (01) ==
LOC: EMS 00:32
DX: R42 Dizziness and giddiness (principal); F41.9 Anxiety disorder, unspecified; E11.65 Type 2 diabetes mellitus with hyperglycemia; E78.00 Pure hypercholesterolemia, unspecified; I10 Essential (primary) hypertension; J44.9 Chronic obstructive pulmonary disease, unspecified; Z87.891 Personal history of nicotine dependence; Z79.899 Other long term (current) drug therapy; Z98.890 Other specified postprocedural states
CPT/HCPCS: 99285; 96374; 71045; 80048; 80076; 82962; 83880; 84484; 85025; 85610; 85730; 36415; 93005; J1885